=== PATIENT | female | born 1930 | race Hispanic/Latino ===

== ENCOUNTER 2017-09-12 08:07 | Inpatient (IN) | payer MEDICARE ==
[2017-09-12] MEDS ORDERED: ONDANSETRON 4 MG/2 ML VIAL ONE (08:17)
[2017-09-12] MEDS ORDERED: FENTANYL CITR 100 MCG/2 ML ONE (08:18)
[2017-09-12 08:28] LABS: Absolute Lymphocytes (CBC) 2.3 K/uL (0.7-4.9); Absolute Monocytes 0.5 K/uL (0.1-1.3); Absolute Neutrophil 4.8 K/uL (1.8-8.0); Basophils % 0.3 % (0-1.3); Eosinophils % 2.9 % (0-4.4); Hematocrit 34.9 % (36.0-45.0); Lymphocytes % 29.3 % (15.3-44.8); MCH 34.3 pg (27.0-35.0); MCV 99.8 fL (80-100); MPV 9.2 fL (7.6-11.3); Monocytes % 6.7 % (3.3-12.3); RBC Red Blood Cell Count 3.49 M/uL (3.86-4.86)
--- NOTE | 2017-09-12 09:29 | RAD REPORT ---
EXAM DESCRIPTION: RAD - Hip Left 2 View - 09/12/2017 9:16 am CLINICAL HISTORY: Left hip pain status post injury FINDINGS: The bones are osteoporotic. A moderately displaced fracture involves the left superior pubic ramus. A mildly displaced fracture involves the left inferior pubic ramus. No dislocation is seen
--- NOTE | 2017-09-12 09:30 | RAD REPORT ---
EXAM DESCRIPTION: RAD - Pelvis - 09/12/2017 9:16 am CLINICAL HISTORY: Pelvic pain status post injury FINDINGS: The bones are osteoporotic. A moderately displaced fracture involves the left superior pubic ramus. A mildly displaced fracture involves the left inferior pubic ramus. No dislocation is seen
--- NOTE | 2017-09-12 09:33 | RAD REPORT ---
EXAM DESCRIPTION: RAD - Knee Left 3 View - 09/12/2017 9:16 am CLINICAL HISTORY: Left knee pain status post injury FINDINGS: No fracture or dislocation is seen. Chondrocalcinosis is present. The bones are osteoporotic
--- NOTE | 2017-09-12 09:35 | RAD REPORT ---
EXAM DESCRIPTION: RAD - Shoulder Left 2 View - 09/12/2017 9:16 am CLINICAL HISTORY: Left shoulder pain status post fall FINDINGS: The bones are osteoporotic. An oblique lucency is present within the acromion process which may represent a nondisplaced fracture or prominent trabecula. No dislocation is seen
--- NOTE | 2017-09-12 12:04 | ER ---
Nurse's Notes [facility] Name: Michele Ivey Age: 87 yrs Sex: Female : 1930 Arrival Date: 09/12/2017 Time: 08:09 Bed 2 Private MD: Diagnosis: Displaced Left Pubic Ramus Fracture ;Left acromial fracture Presentation: 09/12 08:09 Presenting complaint: EMS states: pt slipped out of bed, c/o LEFT hip and shoulder tw2 pain, denies LOC or head injury, vs stable. Transition of care: patient was not received from another setting of care. Onset of symptoms was September 12, 2017. Risk Assessment: Do you want to hurt yourself or someone else? Patient reports no desire to harm self or others. Initial Sepsis Screen: Does the patient meet any 2 criteria? No. Patient's initial sepsis screen is negative. Does the patient have a suspected source of infection? No. Patient's initial sepsis screen is negative. Care prior to arrival: None. 08:09 Method Of Arrival: EMS: [facility] tw2 08:27 Acuity: PARISA 3 tw2 Historical: - Allergies: 08:18 No Known Allergies; tw2 - Home Meds: 08:18 oxcarbazepine 300 mg oral tab 1 tab 2 times per day [Active]; levothyroxine 75 mcg tab tw2 1 tab once daily [Active]; losartan 75 mg oral tab 1 tab once daily [Active]; tizanidine 4 mg oral cap 1 cap 3 times per day [Active]; ibandronate 150 mg oral tab 1 tab once moly [Active]; Pravachol 20 mg Oral tab 1 tab once daily [Active]; Belén Aspirin 325 mg oral tab 1 tab once daily [Active]; magnesium oxide 250 mg Oral tab [Active]; Caltrate 600+D Plus Minerals 600 mg calcium- 800 unit-50 mg oral tab [Active]; Women's One Daily 18 mg iron-400 mcg-500 mg Ca oral tab [Active]; Fish Oil 183.3 mg-75 mg -91.6 mg-306 mg oral cap [Active]; fluzone Hi-Dose - 02/02/2017 [Active]; - PMHx: 08:18 Seizures; Hypertension; Hypothyroidism; tw2 - Immunization history:: Adult Immunizations up to date. - Social history:: Smoking status: Patient/guardian denies using tobacco. - Ebola Screening: : Patient denies travel to an Ebola-affected area in the 21 days before illness onset. Screenin:27 Abuse screen: Denies threats or abuse. Nutritional screening: No deficits noted. tw2 Tuberculosis screening: No symptoms or risk factors identified. Fall Risk None identified. Assessment: 08:25 General: Appears uncomfortable, slender, Behavior is calm, cooperative. Pain: Complains rv of pain in left inguinal area, left iliac crest and left hip Pain. Cardiovascular: Rhythm is PVCs. Respiratory: No deficits noted. Respiratory: No deficits noted. GI: No signs and/or symptoms were reported involving the gastrointestinal system. : No signs and/or symptoms were reported regarding the genitourinary system. EENT: No signs and/or symptoms were reported regarding the EENT system. Derm: No signs and/or symptoms reported regarding the dermatologic system. Musculoskeletal:. 09:39 Reassessment: Patient appears in no apparent distress at this time. Patient and/or tw2 family updated on plan of care and expected duration. Pain level reassessed. Patient is alert, oriented x 3, equal unlabored respirations, skin warm/dry/pink. 10:20 Reassessment: Patient appears in no apparent distress at this time. Patient and/or tw2 family updated on plan of care and expected duration. Pain level reassessed. Patient is alert, oriented x 3, equal unlabored respirations, skin warm/dry/pink. 11:50 Reassessment: Patient appears in no apparent distress at this time. Patient and/or tw2 family updated on plan of care and expected duration. Pain level reassessed. Patient is alert, oriented x 3, equal unlabored respirations, skin warm/dry/pink. Vital Signs: 08:10 BP 137 / 70; Pulse 76; Resp 17; Pulse Ox 95% on R/A; Weight 52.16 kg (R); Pain 10/10; tw2 08:14 Temp 98(O); ae1 08:19 Temp 98(O); tw2 09:38 BP 116 / 63; Pulse 74; Resp 16; Pulse Ox 97% on R/A; tw2 10:19 BP 122 / 74; Pulse 77; Resp 16; Pulse Ox 96% on R/A; tw2 11:32 BP 127 / 72; Pulse 79; Resp 18; Pulse Ox 96% on R/A; ag 11:51 BP 144 / 88; Pulse 78; Resp 16; Pulse Ox 96% on R/A; tw2 08:10 pain 10/10 with movement tw2 ED Course: 08:09 Patient arrived in ED. tw2 08:09 Claudio Rasmussen MD is Attending Physician. kdr 08:10 [facility] Berrios [facility] jr8 08:10 Triage completed. tw2 08:10 Arm band placed on. tw2 08:10 Placed in gown. Bed in low position. Adult w/ patient. electrical technician instructor on. Pulse ox on. tw2 NIBP on. Warm blanket given. 08:13 Giovanny Newby RN is Primary Nurse. ae1 08:30 Inserted saline lock: 20 gauge in right antecubital area, using aseptic technique. rv 09:17 XRAY Hip LEFT 2 view In Process Unspecified. EDMS 09:17 XRAY Pelvis In Process Unspecified. EDMS 09:17 XRAY Knee LEFT 3 view In Process Unspecified. EDMS 09:17 XRAY Shoulder LEFT 2 view In Process Unspecified. EDMS 09:30 EKG done, by geotechnical engineer. 3 09:41 Dimitri Grant MD is Hospitalizing Provider. jr8 10:20 No provider procedures requiring assistance completed. tw2 11:51 Patient admitted, IV remains in place. tw2 Administered Medications: 08:15 Drug: Zofran 4 mg Route: IVP; Site: right antecubital; ae1 09:46 Follow up: Response: No adverse reaction; Nausea is decreased rv 08:22 Drug: fentaNYL (PF) 25 mcg Route: IVP; Site: right antecubital; ae1 09:47 Follow up: Response: No adverse reaction; Pain is decreased rv Outcome: 09:42 Decision to Hospitalize by Provider. jr8 11:51 Admitted to Med/surg accompanied by tech, via stretcher, room 211, with chart, Report tw2 called to MEAGHAN Brown 11:51 Condition: stable 11:51 Instructed on the need for admit. 12:03 Patient left the ED. tw2 Signatures: Dispatcher [employer] EDMS Claudio Rasmussen MD MD kdr Xander Berrios PA PA jr8 Yvonne Nixon Tara, RN RN tw2 Giovanny Newby RN RN ae1 Anisha Fortune 3 Maximiliano Stewart RN RN rv Corrections: (The following items were deleted from the chart) 08: 08:09 Acuity: PARISA 4 tw2 tw2
--- NOTE | 2017-09-12 12:04 | EDPHYS ---
Physician Documentation [facility] Name: Michele Ivey Age: 87 yrs Sex: Female : 1930 Arrival Date: 09/12/2017 Time: 08:09 Bed 2 Private MD: ED Physician Claudio Rasmussen HPI: 09/12 08:52 This 87 yrs old Female presents to ER via EMS with complaints of Fall Injury. jr8 08:52 Details of fall: The patient fell from seated position, off the edge of a bed. Onset: jr8 The symptoms/episode began/occurred acutely, this morning. Associated injuries: The patient sustained left arm and left leg. Severity of symptoms: At their worst the symptoms were moderate, in the emergency department the symptoms are unchanged. The patient has not experienced similar symptoms in the past. The patient has not recently seen a physician. Patient stated that she slid out of bed accidently landing on left hip and arm. Pain with motion and movement since fall . Historical: - Allergies: 08:18 No Known Allergies; tw2 - Home Meds: 08:18 oxcarbazepine 300 mg oral tab 1 tab 2 times per day [Active]; levothyroxine 75 mcg tab tw2 1 tab once daily [Active]; losartan 75 mg oral tab 1 tab once daily [Active]; tizanidine 4 mg oral cap 1 cap 3 times per day [Active]; ibandronate 150 mg oral tab 1 tab once moly [Active]; Pravachol 20 mg Oral tab 1 tab once daily [Active]; Belén Aspirin 325 mg oral tab 1 tab once daily [Active]; magnesium oxide 250 mg Oral tab [Active]; Caltrate 600+D Plus Minerals 600 mg calcium- 800 unit-50 mg oral tab [Active]; Women's One Daily 18 mg iron-400 mcg-500 mg Ca oral tab [Active]; Fish Oil 183.3 mg-75 mg -91.6 mg-306 mg oral cap [Active]; fluzone Hi-Dose - 02/02/2017 [Active]; - PMHx: 08:18 Seizures; Hypertension; Hypothyroidism; tw2 - Immunization history:: Adult Immunizations up to date. - Social history:: Smoking status: Patient/guardian denies using tobacco. - Ebola Screening: : Patient denies travel to an Ebola-affected area in the 21 days before illness onset. ROS: 08:52 Eyes: Negative for injury, pain, redness, and discharge, ENT: Negative for injury, jr8 pain, and discharge, Neck: Negative for injury, pain, and swelling, Cardiovascular: Negative for chest pain, palpitations, and edema, Respiratory: Negative for shortness of breath, cough, wheezing, and pleuritic chest pain, Abdomen/GI: Negative for abdominal pain, nausea, vomiting, diarrhea, and constipation, Back: Negative for injury and pain, Skin: Negative for injury, rash, and discoloration, Neuro: Negative for headache, weakness, numbness, tingling, and seizure. 08:52 MS/extremity: Positive for decreased range of motion, pain, tenderness, of the left arm and left leg. Exam: 08:52 Head/Face: Normocephalic, atraumatic. Eyes: Pupils equal round and reactive to light, jr8 extra-ocular motions intact. Lids and lashes normal. Conjunctiva and sclera are non-icteric and not injected. Cornea within normal limits. Periorbital areas with no swelling, redness, or edema. ENT: Nares patent. No nasal discharge, no septal abnormalities noted. Tympanic membranes are normal and external auditory canals are clear. Oropharynx with no redness, swelling, or masses, exudates, or evidence of obstruction, uvula midline. Mucous membranes moist. Neck: Trachea midline, no thyromegaly or masses palpated, and no cervical lymphadenopathy. Supple, full range of motion without nuchal rigidity, or vertebral point tenderness. No Meningismus. Chest/axilla: Normal chest wall appearance and motion. Nontender with no deformity. No lesions are appreciated. Cardiovascular: Regular rate and rhythm with a normal S1 and S2. No gallops, murmurs, or rubs. Normal PMI, no JVD. No pulse deficits. Respiratory: Lungs have equal breath sounds bilaterally, clear to auscultation and percussion. No rales, rhonchi or wheezes noted. No increased work of breathing, no retractions or nasal flaring. Abdomen/GI: Soft, non-tender, with normal bowel sounds. No distension or tympany. No guarding or rebound. No evidence of tenderness throughout. Back: No spinal tenderness. No costovertebral tenderness. Full range of motion. Skin: Warm, dry with normal turgor. Normal color with no rashes, no lesions, and no evidence of cellulitis. Neuro: Awake and alert, GCS 15, oriented to person, place, time, and situation. Cranial nerves II-XII grossly intact. Motor strength 5/5 in all extremities. Sensory grossly intact. Cerebellar exam normal. Normal gait. 08:52 Musculoskeletal/extremity: Extremities: grossly normal except: noted in the left shoulder: decreased ROM, pain, tenderness, noted in the left hip: decreased ROM, pain, tenderness, ROM: full passive range of motion, limited active range of motion, limited passive range of motion, limited active range of motion due to pain, limited passive range of motion due to pain, Circulation is intact in all extremities. Sensation intact. Vital Signs: 08:10 BP 137 / 70; Pulse 76; Resp 17; Pulse Ox 95% on R/A; Weight 52.16 kg (R); Pain 10/10; tw2 08:14 Temp 98(O); ae1 08:19 Temp 98(O); tw2 09:38 BP 116 / 63; Pulse 74; Resp 16; Pulse Ox 97% on R/A; tw2 10:19 BP 122 / 74; Pulse 77; Resp 16; Pulse Ox 96% on R/A; tw2 11:32 BP 127 / 72; Pulse 79; Resp 18; Pulse Ox 96% on R/A; ag 11:51 BP 144 / 88; Pulse 78; Resp 16; Pulse Ox 96% on R/A; tw2 08:10 pain 10/10 with movement tw2 MDM: 08:10 Patient medically screened. jr8 09:35 ED course: Called Dr. Bardales and left message to see if he could consult on case . jr8 09:40 Data reviewed: vital signs, nurses notes, lab test result(s), EKG, radiologic studies, jr8 plain films, and as a result, I will admit patient. Data interpreted: Pulse oximetry: on room air is 97 %. Interpretation: normal. Counseling: I had a detailed discussion with the patient and/or guardian regarding: the historical points, exam findings, and any diagnostic results supporting the discharge/admit diagnosis, lab results, radiology results, the need for further work-up and treatment in the hospital. Physician consultation: Dimitri Grant MD was called at 09:40, was contacted at 09:40, regarding admission, to the medical/surgical unit. consult, patient's condition, and will see patient. 10:10 ED course: Dr. Bardales called back and will consult on case . 09/12 08:11 Order name: CBC with Diff; Complete Time: 08:35 09/12 08:11 Order name: Basic Metabolic Panel; Complete Time: 08:41 09/12 08:11 Order name: XRAY Hip LEFT 2 view; Complete Time: 09:33 09/12 08:11 Order name: XRAY Pelvis; Complete Time: 09:33 09/12 08:11 Order name: XRAY Knee LEFT 3 view; Complete Time: 09:34 09/12 08:11 Order name: XRAY Shoulder LEFT 2 view; Complete Time: 09:38 09/12 08:11 Order name: IV; Complete Time: 08:26 09/12 09:38 Order name: Sling; Complete Time: 09:41 09/12 11:02 Order name: CONS Physician Consult EDMS Administered Medications: 08:15 Drug: Zofran 4 mg Route: IVP; Site: right antecubital; ae1 09:46 Follow up: Response: No adverse reaction; Nausea is decreased rv 08:22 Drug: fentaNYL (PF) 25 mcg Route: IVP; Site: right antecubital; ae1 09:47 Follow up: Response: No adverse reaction; Pain is decreased rv Disposition: 13:08 Co-signature as Attending Physician, Claudio Rasmussen MD I agree with the assessment and kdr plan of care. Disposition: 09/12/17 09:42 Hospitalization ordered by Dimitri Grant for Inpatient Admission. Preliminary diagnosis are Displaced Left Pubic Ramus Fracture , Left acromial fracture . - Bed requested for Telemetry/MedSurg (Inpatient). - Status is Inpatient Admission. tw2 - Condition is Stable. - Problem is new. - Symptoms have improved. UTI on Admission? No Signatures: Dispatcher [employer] EDMS Ana Méndez RN RN dw Claudio Rasmussen MD MD kdr Roszak, Josh, PA PA jr8 Tavia Bellamy RN RN tw2 Giovanny Newby RN RN ae1 Maximiliano Stewart RN rv Corrections: (The following items were deleted from the chart) 11:25 09:42 Hospitalization Ordered by A Rudy BURRELL for Inpatient Admission. Preliminary dw diagnosis is Displaced Left Pubic Ramus Fracture ; Left acromial fracture . Bed requested for Telemetry/MedSurg (Inpatient). Status is Inpatient Admission. Condition is Stable. Problem is new. Symptoms have improved. UTI on Admission? No. jr8 12:03 11:25 09/12/2017 09:42 Hospitalization Ordered by A Rudy BURRELL for Inpatient Admission. tw2 Preliminary diagnosis is Displaced Left Pubic Ramus Fracture ; Left acromial fracture . Bed requested for Telemetry/MedSurg (Inpatient). Status is Inpatient Admission. Condition is Stable. Problem is new. Symptoms have improved. UTI on Admission? No. dw
[2017-09-12] MEDS ORDERED: MORPHINE 2 MG/ML SYR IV PRN (12:29)
[2017-09-12] MEDS ORDERED: ONDANSETRON 4 MG/2 ML VIAL IV PRN (12:29)
[2017-09-12] MEDS: Morphine 2 MG/2 ML SYR IV PRN ×3 (12:40→22:27)
[2017-09-12] MEDS ORDERED: ENOXAPARIN 30 MG/0.3 ML SQ ONE (19:08)
[2017-09-12] MEDS: TRAMADOL HCL 50 MG TAB PO SCH (21:02)
[2017-09-12] MEDS: ATORVASTATIN 10 MG TAB PO SCH (21:02)
[2017-09-12] MEDS: TIZANIDINE 4 MG TABLET PO SCH (21:03)
[2017-09-12] MEDS: OXcarbazepine 150 MG TAB PO SCH (21:09)
[2017-09-12] MEDS: NA CHLORIDE 0.9% 1,000 ML IV SCH (23:57)
[2017-09-13 00:12] LABS: Urine Appearance CLEAR; Urine Bilirubin NEGATIVE (NEG); Urine Blood 2+ (NEG); Urine Color YELLOW; Urine Glucose NEGATIVE (NEG); Urine Protein TRACE (NEG); Urine Specific Gravity 1.025 (1.005-1.030); Urine Urobilinogen 0.2 mg/dL (0.2-1.0)
[2017-09-13 00:25] LABS: Urine Culture Reflex Order NOT NEEDED
[2017-09-13 00:26] LABS: Urine Bacteria <20 /HPF (<20); Urine Mucus 2+ /HPF (NONE SEEN)
[2017-09-13] MEDS: ACETAMINOPHEN 500 MG TAB PO PRN (00:42)
[2017-09-13] MEDS: Morphine 2 MG/2 ML SYR IV PRN (04:41)
[2017-09-13 05:04] LABS: Absolute Lymphocytes (CBC) 1.8 K/uL (0.7-4.9); Absolute Monocytes 0.7 K/uL (0.1-1.3); Absolute Neutrophil 5.6 K/uL (1.8-8.0); Basophils % 0.5 % (0-1.3); Eosinophils % 3.7 % (0-4.4); Lymphocytes % 21.6 % (15.3-44.8); MCH 33.9 pg (27.0-35.0); MCV 100.7 fL (80-100); MPV 9.7 fL (7.6-11.3); Monocytes % 8.3 % (3.3-12.3); RBC Red Blood Cell Count 3.08 M/uL (3.86-4.86)
[2017-09-13 05:57] LABS: Albumin 3.7 g/dL (3.2-5.5); Bilirubin Total 0.6 mg/dL (0.3-1.2); Magnesium 2.3 mg/dL (1.8-2.5); Protein, Total 6.7 g/dL (6.0-8.3); Thyroid Stimulating Hormone 4.63 uIU/mL (0.34-5.60)
--- NOTE | 2017-09-13 06:26 | HP ---
Date of Admission: 09/12/2017 Chief Complaint: Fall and pain. History Of Present Illness: This is an 87-year-old very pleasant female patient, who lives at home w ith her sister and her sister's family, who really have done a great job in terms of taking care of h er by keeping her in their house as well as looking after on her day-to-day needs. The patient uses a walker to ambulate inside and outside the house and she was in the bathroom with her walker and she took walker all the way to the bathroom and then went inside the bathroom holding onto sink area and cabinet and what we believe as best as I can understand by talking to family that she was probably g etting up from the commode, lost her balance, and fell down next to the commode. After that, her nep hew heard the noise and he went there to check on her and found her on the floor. He tried to get he r up. She was not able to get up and the patient was brought into emergency room, where further eval uation revealed presence of fracture of the acromion process of left shoulder and left pelvis includi ng superior and inferior pubic ramus. The patient was admitted to the hospital under my service and Orthopedic consultation has been obtained from Dr. Bardales. Dr. Bardalse has recommended conservative treat ment, no need for surgical intervention. Allergies: NO KNOWN ALLERGIES. Medications: She takes Aleve 220 mg 1 tablet 2 times a day as needed for pain, aspirin 81 mg daily, Caltrate plus D 1 tablet 2 times a day, Boniva 150 mg once a month, levothyroxine 75 mcg p.o. daily, losartan 50 mg p.o. daily, magnesium 250 mg p.o. 2 times a day, oxcarbazepine 300 mg 1 tablet 2 times a day, pravastatin 20 mg daily in the evening, and tizanidine 4 mg at bedtime as needed. Review of Systems: Musculoskeletal: As mentioned above. All other systems reviewed and negative. Past Medical History: Significant for osteoporosis, hypertension, mixed hyperlipidemia, seizure diso rder, hypothyroidism, and osteoarthritis at multiple sites. Past Surgical History: Pacemaker placement in 2006. Social History: Negative for smoking, alcohol use. Family History: Significant for myocardial infarction, stroke, and lung cancer. Physical Examination: Vital Signs: Last vital signs before I saw her this evening, temperature 99.3, pulse 89, respiratory rate 20, blood pressure 128/61, height 5 feet and 2 inches, and weight 103 pounds. General: Awake, alert, and oriented, not in distress. HEENT: Head atraumatic, normocephalic. Conjunctivae nonerythematous. Sclerae white. Mouth, no thr ush or edema noted. Ears/Nose, no mass, lesion, discharge noted. Neck: Supple. No JVD, lymph nodes, bruit, or thyromegaly noted. Lungs: Bilateral good equal air entry. Clear to auscultation. No rhonchi. No rales. Heart: Normal heart sounds, no murmur or gallop. Abdomen: Soft, bowel sounds normal. No guarding, rigidity, tenderness, mass, hepatosplenomegaly, di stention, or bruit noted. Extremities: No leg edema. No calf tenderness. Skin: No rash, ulcer, or cellulitis. Lymphatics: No lymph node enlargement in neck, supraclavicular, or infraclavicular region. Neuro: No focal neurological deficit. Chest: Unremarkable. External Genitalia: Deferred. Rectal: Deferred. Laboratory Data: Sodium 141, potassium 4, chloride 105, bicarb 29, BUN 25, creatinine 0.74, and gluc ose 118. White count 7.8, hemoglobin 12, and platelets 141. Imaging: Left hip x-ray shows moderately displaced fracture involving left superior pubic ramus, mil dly displaced fracture involving left inferior pubic ramus. Knee x-ray, chondrocalcinosis. Bones ar e osteoporotic. No fracture or dislocation. Left shoulder x-ray, oblique lucency present within acr omion process, which may represent no displaced fracture or prominent trabecula, no dislocation. Impression: 1.Left superior and inferior pubic ramus fracture with [id number] displacement. 2.Left shoulder fracture involving acromion process. 3.Osteoporosis. 4.Osteoarthritis, multiple sites. 5.Mixed hyperlipidemia. 6.Seizure disorder. 7.Hypothyroidism. 8.Hypertension. 9.Status post pacemaker placement. Plan: Admit the patient to hospital for further evaluation and management of this problem. The [facility] ent is appropriate for inpatient and is expected to spend 2 midnights in hospital. We will go ahead and follow up with orthopedic surgeon, Dr. Bardales, who has evaluated the patient. Conservative treatme nt is recommended. We will go ahead and consult Physical Therapy. We will also consult Rehab. Fall precaution was ordered. DVT prophylaxis will be provided using Lovenox. We will repeat blood work tomorrow. The patient has significant amount of pain with any movement including trying to move just to use the bed samuel caused very intense pain as reported by family. So, what we will do is go ahead and put a Guzman catheter for at least 48 hours to try to provide her some relief. We will also obtai n urinalysis, urine culture once the Guzman catheter is in place and morphine and Zofran will be maria esther nued on a p.r.n. basis, but we will also add tramadol 3 times a day, as scheduled pain medication. C ontinue tizanidine at bedtime. Stool softener will be given. Details and plan of treatment discusse d with the patient and her family member. RUDI/ABDIRIZAK Voice ID: [id number]
--- NOTE | 2017-09-13 06:59 | EKG ---
Test Date: 2017-09-12 Test Time: 09:30:03 Paving And Surfacing Labourer: ANA MEASUREMENT RESULTS: Intervals: Rate: 75 OH: 192 QRSD: 78 QT: 366 QTc: 408 [place]: P: -24 OH: 192 QRS: 10 T: 13 INTERPRETIVE STATEMENTS: Atrial-paced rhythm with occasional premature ventricular complexes Cannot rule out Anterior infarct, age undetermined Abnormal ECG No previous ECG available for comparison Electronically Signed On 09-13-17 06:55:50 CDT by Gustavo Roper
[2017-09-13] MEDS: MAGNESIUM OXIDE 400 MG TAB PO SCH (09:38)
[2017-09-13] MEDS: DOCOSAHEXANOIC AC/EPA 1000 MG PO SCH (09:38)
[2017-09-13] MEDS: CALCIUM CARB 500MG/VIT D 200 IU TAB PO SCH (09:38)
[2017-09-13] MEDS: DOCUSATE NA 100 MG CAP PO SCH ×2 (09:38→20:16)
[2017-09-13] MEDS: LOSARTAN POTASSIUM 50 MG TABLET PO SCH (09:39)
[2017-09-13] MEDS: MULTIVITAMIN TAB PO SCH (09:39)
[2017-09-13] MEDS: LEVOTHYROXINE SOD 0.075 MG TAB PO SCH (09:39)
[2017-09-13] MEDS: TRAMADOL HCL 50 MG TAB PO SCH ×3 (09:39→20:18)
[2017-09-13] MEDS: ASPIRIN 81 MG CHEWABLE TABLET PO SCH (09:39)
[2017-09-13] MEDS: OXcarbazepine 150 MG TAB PO SCH ×2 (09:40→20:15)
--- NOTE | 2017-09-13 10:32 | P.PN ---
Subjective Date of Service: 09/13/17 Chief Complaint: L acromion fracture and left pubic rami fractures Subjective: No new changes pain controlled Physical Examination - Vital Signs Temperature: 98.2 F Blood Pressure: 129/60 Pulse: 77 Respirations: 18 Pulse Ox (%): 91 - Physical Exam General: Alert, In no apparent distress Musculoskeletal: Other (LUE: no pain with ROM of left shoulder or elbow; NVI distally; LLE: mild pain with ER/IR/flexion of the left hip; NVI distally) Assessment And Plan - Plan Michele is an 87 yo female s/p fall with left acromion fracture and left pubic rami fractures -will proceed with nonoperative treatment -PT to mobilize; WBAT LLE; WBAT LUE; sling for comfort for LUE and may remove as needed -pain control -patient may followup in my clinic in 2 weeks for reevaluation and repeat xrays
--- NOTE | 2017-09-13 12:14 | CON ---
Date of Consultation: 09/12/2017 Reason For Consultation: Left hip and left shoulder pain. History Of Present Illness: Ms. Ivey is an 87-year-old female who presented to the ER yesterday after sustaining a fall from a commode. She fell onto her left side and subsequently injured her le ft groin and left shoulder. The patient had x-rays in the emergency room, which demonstrated a minim ally displaced left acromion fracture as well as a left sided inferior superior pubic rami fractures. Prior to the fall, the patient was ambulating with use of a walker. The patient was not able to am bulate after the fall. She denies any other musculoskeletal complaints at this time. Review of Systems: As above, otherwise negative. Physical Examination: General: No apparent distress. HEENT: Normocephalic, atraumatic. Neck: Supple. Cardiovascular: Brisk cap refill to all digits. Chest: Nonlabored breathing. Abdomen: Nondistended. Psychiatric: Responds to exam. Musculoskeletal: Left upper extremity: Tenderness to palpation over the superior aspect of the acro mion. No tenderness to palpation over the humeral head or shaft. No pain with internal and external rotation of the left shoulder. Neurovascular: Intact distally. Right upper extremity: Functional range of motion without pain. No gross deformities. No obvious d islocations. Right lower extremity: Functional range of motion without pain. No gross deformities. No obvious dislocations. No pain with range of motion of the right hip. Left lower extremity: Pa in with pressure on the ASIS. No pain with internal and external rotation of the left hip with the l eg extended. No tenderness to palpation over the distal femur, tibia or foot. Positive firing of EH L and FHL and neurovascularly intact distally. X-rays: X-rays of the left shoulder demonstrate a minimally displaced acromion fracture near the AC joint. X-rays of the pelvis did demonstrate a moderately displaced fracture of the left superior and inferior rami. No obvious fracture of the left proximal femur. Assessment And Plan: Ms. Ivey is an 87-year-old female with left-sided pubic rami fracture as w ell as a left acromion fracture. I discussed with the patient and her family at length her diagnoses as well as treatment recommendation. I recommend nonoperative closed treatment. She will be admitt ed to the floor under the care of Dr. Grant who now recommend physical therapy and immobilization. Th e patient may be weightbearing as tolerated on the bilateral lower extremity as well as the upper ext remity. She may use a sling for comfort on her left upper extremity and may remove it while ambulati ng with the use of a walker. ALEKS/ABDIRIZAK Voice ID: [id number] Report ID: [id number]
[2017-09-13] MEDS: NA CHLORIDE 0.9% 1,000 ML IV SCH (12:43)
--- NOTE | 2017-09-13 13:35 | PN ---
Date of Progress Note: 09/13/2017 Subjective: The patient was seen this morning for followup. No new complaints, problems reported by the patient except she has pain anytime she moves, otherwise denies any other specific complaints. No nausea, vomiting. No shortness of breath. Her nephew was present with her in the room. Objective: Vital Signs: Reviewed. HEENT: Examination unremarkable. Lungs: Clear to auscultation. Heart: Sounds normal. Abdomen: Soft, bowel sounds normal. No guarding, rigidity, tenderness, or distention. Extremities: No leg edema. Laboratory Data: White count 8.5, hemoglobin 10.5, platelets 113. Sodium 139, potassium 4, chloride 105, bicarb 29, BUN 29, creatinine 0.78, glucose 116. Liver function tests unremarkable. TSH 4.63. Impression: 1.Left superior and inferior pubic ramus fracture with displacement. 2.Left acromion infracture. 3.Thrombocytopenia. 4.Hypertension. 5.Seizure disorder. 6.Osteoporosis. 7.Osteoarthritis. 8.Anemia. Plan: We will go ahead and continue current pain medications which is p.r.n. morphine and schedule t ramadol. Continue tizanidine. Physical therapy to work with the patient. I did talk to Dr. Jeffy norris plan of treatment discussed with him. We will consult rehab. Continue Lovenox for DVT prophylaxis . We will monitor hemoglobin and platelet count along with electrolytes. Home medications will be c ontinued per order. Details and plan of treatment discussed with the patient and her family. Urinalysis was unremarkable. No evidence of urinary tract infection. The patient has a Guzman cathet er, which was placed yesterday evening and we will keep that in place at least for another day or 2 d ays and then we will decide at that point if she can take it out or not RUDI/MODL Voice ID: [id number] Report ID: [id number]
[2017-09-13] MEDS ORDERED: ENOXAPARIN 30 MG/0.3 ML SQ SCH (17:00)
[2017-09-13] MEDS: ATORVASTATIN 10 MG TAB PO SCH (20:17)
[2017-09-13] MEDS: TIZANIDINE 4 MG TABLET PO SCH (20:21)
[2017-09-14] MEDS: ACETAMINOPHEN 500 MG TAB PO PRN ×2 (00:07→12:42)
[2017-09-14] MEDS: NA CHLORIDE 0.9% 1,000 ML IV SCH (00:08)
[2017-09-14] MEDS: MULTIVITAMIN TAB PO SCH (08:39)
[2017-09-14] MEDS: TRAMADOL HCL 50 MG TAB PO SCH ×3 (08:39→20:13)
[2017-09-14] MEDS: DOCOSAHEXANOIC AC/EPA 1000 MG PO SCH (08:39)
[2017-09-14] MEDS: OXcarbazepine 150 MG TAB PO SCH ×2 (08:40→20:13)
[2017-09-14] MEDS: CALCIUM CARB 500MG/VIT D 200 IU TAB PO SCH (08:40)
[2017-09-14] MEDS: MAGNESIUM OXIDE 400 MG TAB PO SCH (08:40)
[2017-09-14] MEDS: ASPIRIN 81 MG CHEWABLE TABLET PO SCH (08:40)
[2017-09-14] MEDS: DOCUSATE NA 100 MG CAP PO SCH ×2 (08:41→20:13)
[2017-09-14] MEDS: LOSARTAN POTASSIUM 50 MG TABLET PO SCH (08:41)
[2017-09-14] MEDS: LEVOTHYROXINE SOD 0.075 MG TAB PO SCH (08:48)
[2017-09-14 10:04] LABS: BUN Blood Urea Nitrogen 17 mg/dL (6-20); Bicarbonate 28 mEq/L (21-31); Glucose Level 142 mg/dL (65-120); Magnesium 2.1 mg/dL (1.8-2.5); Potassium 3.3 mEq/L (3.6-5.0); Sodium Level 135 mEq/L (135-145)
[2017-09-14 10:12] LABS: Absolute Monocytes 0.6 K/uL (0.1-1.3); Absolute Neutrophil 5.4 K/uL (1.8-8.0); Basophils % 0.3 % (0-1.3); Eosinophils % 4.5 % (0-4.4); Hematocrit 26.4 % (36.0-45.0); Lymphocytes % 13.6 % (15.3-44.8); MCH 33.3 pg (27.0-35.0); MCV 99.8 fL (80-100); MPV 9.7 fL (7.6-11.3); Monocytes % 7.6 % (3.3-12.3); RBC Red Blood Cell Count 2.65 M/uL (3.86-4.86)
[2017-09-14] MEDS ORDERED: POTASSIUM 25 MEQ EFFERV TAB PO ONE (10:28)
--- NOTE | 2017-09-14 15:18 | PN ---
Date of Progress Note: 09/14/2017 Subjective: The patient was seen today for followup. No new complaints or problems reported. No nausea, vomiting. No abdominal pain. Objective: Vital Signs: Reviewed. HEENT: Unremarkable. Lungs: clear to auscultation. Heart: Heart sounds normal. Abdomen: soft, bowel sounds normal. No guarding, rigidity, tenderness, or distention. Extremities: No leg edema. Laboratory Data: White count 7.3, hemoglobin 8.8, and platelets 95. Sodium 135 , potassium 3.3, chloride 105, bicarb 28, BUN 17, creatinine 0.57, and glucose 142. Impression: 1. Left superior and inferior pubic ramus fracture. 2. Hypokalemia. 3. Thrombocytopenia. 4. Anemia. Plan: The patient's thrombocytopenia is something new that we are noticing it while in the hospital. She is getting Lovenox for DVT prophylaxis. We will discontinue that considering drop in the platelet count until we see platelet count stabilizing. Order HIT profile and we will order SCD for DVT prophylaxis. Physical therapy to be continued. Continue current pain medication and I will see her tomorrow for followup. RUDI/MODL Voice ID: [id number] Report ID: [id number] GREGORIO
[2017-09-14] MEDS: TIZANIDINE 4 MG TABLET PO SCH (20:13)
[2017-09-14] MEDS: ATORVASTATIN 10 MG TAB PO SCH (20:14)
[2017-09-15] MEDS: ACETAMINOPHEN 500 MG TAB PO PRN (05:28)
[2017-09-15 06:33] LABS: Absolute Lymphocytes (CBC) 1.3 K/uL (0.7-4.9); Absolute Monocytes 0.7 K/uL (0.1-1.3); Basophils % 0.4 % (0-1.3); Eosinophils % 4.5 % (0-4.4); Hematocrit 27.9 % (36.0-45.0); Lymphocytes % 15.8 % (15.3-44.8); MCH 34.6 pg (27.0-35.0); MCV 99.9 fL (80-100); Monocytes % 8.8 % (3.3-12.3); RBC Red Blood Cell Count 2.79 M/uL (3.86-4.86)
[2017-09-15 06:48] LABS: BUN Blood Urea Nitrogen 11 mg/dL (6-20); Bicarbonate 25 mEq/L (21-31); Glucose Level 116 mg/dL (65-120); Potassium 4.3 mEq/L (3.6-5.0); Sodium Level 135 mEq/L (135-145)
[2017-09-15] MEDS: MULTIVITAMIN TAB PO SCH (09:29)
[2017-09-15] MEDS: OXcarbazepine 150 MG TAB PO SCH ×2 (09:29→20:13)
[2017-09-15] MEDS: APIXABAN 2.5 MG TABLET PO SCH ×2 (09:29→20:14)
[2017-09-15] MEDS: DOCOSAHEXANOIC AC/EPA 1000 MG PO SCH (09:30)
[2017-09-15] MEDS: LEVOTHYROXINE SOD 0.075 MG TAB PO SCH (09:30)
[2017-09-15] MEDS: DOCUSATE NA 100 MG CAP PO SCH ×2 (09:30→20:14)
[2017-09-15] MEDS: MAGNESIUM OXIDE 400 MG TAB PO SCH (09:30)
[2017-09-15] MEDS: TRAMADOL HCL 50 MG TAB PO SCH ×3 (09:31→20:13)
[2017-09-15] MEDS: CALCIUM CARB 500MG/VIT D 200 IU TAB PO SCH (09:32)
[2017-09-15] MEDS: LOSARTAN POTASSIUM 50 MG TABLET PO SCH (09:32)
--- NOTE | 2017-09-15 11:10 | PN ---
Date of Progress Note: 09/15/2017 Subjective: The patient was seen this morning for followup. She is able to get in and out of bed to use the bedside commode with assistance that was noted this morning. Denies any nausea vomiting, ab dominal pain. No chest pain. No shortness of breath. The patient had 2 episodes of paroxysmal atri al fibrillation with heart rate around 140 per minute. She was asymptomatic and she spontaneously co nverted to sinus rhythm. Objective: Vital Signs: Reviewed. HEENT: Unremarkable. Lungs: Clear to auscultation. Heart: Sounds normal. Abdomen: Soft. Bowel sounds normal. No guarding, rigidity, tenderness, or distention. Extremities: No leg edema. Laboratory Data: White count 8.5, hemoglobin 9.6, platelets 94. Sodium 135, potassium 4.3, chloride 103, bicarb 25, BUN 11, creatinine 0.54, glucose 116, magnesium 2. Impression: 1.Left superior and inferior pubic ramus fracture. 2.Left shoulder acromion fracture. 3.Atrial fibrillation, paroxysmal. 4.Anemia. 5.Hypertension. 6.Osteoporosis. 7.Osteoarthritis, multiple sites. Plan: We will continue current medications, add Eliquis, discontinue aspirin, continue other current medications, consult Cardiology for atrial fibrillation, and I will see her tomorrow for followup. Her TSH was normal at 4.63 on 018. RUDI/MODL Voice ID: [id number] Report ID: [id number]
[2017-09-15] MEDS: TIZANIDINE 4 MG TABLET PO SCH (20:14)
[2017-09-15] MEDS: ATORVASTATIN 10 MG TAB PO SCH (20:14)
[2017-09-16] MEDS: TRAMADOL HCL 50 MG TAB PO SCH ×3 (09:10→20:23)
--- NOTE | 2017-09-16 09:26 | CON ---
Date of Consultation: 09/15/2017 Reason For Consultation: Short run of atrial fibrillation. History Of Present Illness: Ms. Ivey is an 87-year-old woman who came in with pubic fracture on 09/12/2017. She was in normal rhythm. Then, she had a blood pressure of 171/74. She has a pacemak er, was intermittently paced, but had a short run of atrial fibrillation without any symptoms on hemo dynamic compromise. Denied chest pain, shortness of breath, nausea, vomiting, diaphoresis, PND, orth opnea, pedal edema, palpitations, or syncope. O2 saturation had been consistent in the 92% to 93% on nasal cannula. She is in a paced rhythm this morning. Past Medical History: Includes history of seizures, hypertension, and hypothyroidism. Allergies: NONE. Review of Systems: Negative. Social History: Negative. Family History: Noncontributory. Medications: Include Synthroid, losartan, Pravachol, magnesium. Physical Examination: Vital Signs: Stable. She was afebrile. She was in a paced rhythm. HEENT: Negative. Neck: Supple with no bruit. Chest: Clear to auscultation and percussion. Cardiac: Revealed a regular rhythm and rate without any murmurs, gallops, or rubs. Abdomen: Benign. Extremities: Revealed no clubbing, cyanosis, or edema. Diagnostic Data: Shows a hemoglobin of 9.6. Creatinine was 0.54. BNP and troponin were negative. Her magnesium level was normal. Potassium was normal. Chest x-ray was unremarkable. EKG showed atr ial paced rhythm with occasional PVCs. Impression And Plan: 1.Paroxysmal atrial fibrillation, probably occurring more often than we think. 2.History of hypertension. 3.History of dyslipidemia. 4.Hypothyroidism. 5.Recent pubic fracture. No plans for surgery. Ms. Ivey's medical regimen is appropriate. She is on losartan for her blood pressure. She is o n Lipitor for her dyslipidemia. She is on Synthroid for her hypothyroidism. She is occasionally hyp ertensive, she is not now. Certainly, a low-dose beta-travon may be helpful in preventing the atria l fibrillation. Dr. Grant already put her on Eliquis 2.5 mg b.i.d., and I agree with that. If she st ays here later on this week, we will get a 2D echocardiogram on her to rule out any left atrial throm bus or wall motion abnormalities. I will order that for Saturday next . We will continue to foll ow her as needed. PRASANNA Voice ID: [id number] Report ID: [id number]
[2017-09-16] MEDS: LOSARTAN POTASSIUM 50 MG TABLET PO SCH (09:39)
[2017-09-16] MEDS: MAGNESIUM OXIDE 400 MG TAB PO SCH (09:39)
[2017-09-16] MEDS: CALCIUM CARB 500MG/VIT D 200 IU TAB PO SCH (09:39)
[2017-09-16] MEDS: DOCOSAHEXANOIC AC/EPA 1000 MG PO SCH (09:39)
[2017-09-16] MEDS: DOCUSATE NA 100 MG CAP PO SCH ×2 (09:39→20:23)
[2017-09-16] MEDS: MULTIVITAMIN TAB PO SCH (09:39)
[2017-09-16] MEDS: OXcarbazepine 150 MG TAB PO SCH ×2 (09:40→20:22)
[2017-09-16] MEDS: LEVOTHYROXINE SOD 0.075 MG TAB PO SCH (09:40)
[2017-09-16] MEDS: APIXABAN 2.5 MG TABLET PO SCH ×2 (09:40→20:22)
[2017-09-16] MEDS: ACETAMINOPHEN 500 MG TAB PO PRN ×2 (09:51→18:39)
--- NOTE | 2017-09-16 13:26 | PN ---
Date of Progress Note: 09/16/2017 Subjective: The patient was seen this morning for followup. No new complaints or problems reported by the patient. Her pain that she has in her pelvis area with movement is actually better than before. Objective: Vital Signs: Reviewed. HEENT: Unremarkable. Lungs: Clear to auscultation. Heart: Heart sounds normal. Abdomen: Soft. Bowel sounds normal. No guarding, rigidity, tenderness, or distention. Extremities: No leg edema. Impression: 1. Fracture of left shoulder, acromion process. 2. Fracture of left superior and inferior pubic ramus. 3. Hypertension. 4. Hyperlipidemia. 5. Osteoporosis. 6. Osteoarthritis, multiple sites. Plan: We will continue current medications, continue current pain medication. Physical therapy to continue to work with the patient. Tomorrow we will we have rehab reassess patient's need for rehab stay for inpatient rehab therapy. We will see her tomorrow for followup. RUDI/ABDIRIZAK Voice ID: [id number] Report ID: [id number] GREGORIO
[2017-09-16] MEDS: ATORVASTATIN 10 MG TAB PO SCH (20:22)
[2017-09-16] MEDS: TIZANIDINE 4 MG TABLET PO SCH (20:23)
[2017-09-17] MEDS: Morphine 2 MG/2 ML SYR IV PRN (01:03)
[2017-09-17 04:19] LABS: Absolute Lymphocytes (CBC) 1.6 K/uL (0.7-4.9); Absolute Monocytes 0.8 K/uL (0.1-1.3); Absolute Neutrophil 4.5 K/uL (1.8-8.0); Basophils % 0.7 % (0-1.3); Eosinophils % 6.8 % (0-4.4); Hematocrit 26.1 % (36.0-45.0); MCH 34.6 pg (27.0-35.0); MCV 99.3 fL (80-100); MPV 9.7 fL (7.6-11.3); Monocytes % 11.2 % (3.3-12.3); RBC Red Blood Cell Count 2.63 M/uL (3.86-4.86)
[2017-09-17 04:35] LABS: BUN Blood Urea Nitrogen 14 mg/dL (6-20); Bicarbonate 27 mEq/L (21-31); Glucose Level 102 mg/dL (65-120); Potassium 4.3 mEq/L (3.6-5.0); Sodium Level 137 mEq/L (135-145)
--- NOTE | 2017-09-17 09:25 | RAD REPORT ---
EXAM DESCRIPTION: [facility]ark[facility] Single View09/17/2017 8:14 am CLINICAL HISTORY: fever COMPARISON: October 2016 FINDINGS: Bilateral interstitial lung opacities are unchanged. . The heart is mildly enlarged. Pace maker leads are in place IMPRESSION: Bilateral interstitial lung opacities are unchanged presumably representing pulmonary fi brosis
[2017-09-17] MEDS: DOCOSAHEXANOIC AC/EPA 1000 MG PO SCH (10:20)
[2017-09-17] MEDS: APIXABAN 2.5 MG TABLET PO SCH ×2 (10:20→20:21)
[2017-09-17] MEDS: MAGNESIUM OXIDE 400 MG TAB PO SCH (10:20)
[2017-09-17] MEDS: CALCIUM CARB 500MG/VIT D 200 IU TAB PO SCH (10:21)
[2017-09-17] MEDS: DOCUSATE NA 100 MG CAP PO SCH ×2 (10:21→20:21)
[2017-09-17] MEDS: TRAMADOL HCL 50 MG TAB PO SCH ×3 (10:21→20:22)
[2017-09-17] MEDS: LOSARTAN POTASSIUM 50 MG TABLET PO SCH (10:22)
[2017-09-17] MEDS: MULTIVITAMIN TAB PO SCH (10:22)
[2017-09-17] MEDS: LEVOTHYROXINE SOD 0.075 MG TAB PO SCH (10:22)
[2017-09-17] MEDS: OXcarbazepine 150 MG TAB PO SCH ×2 (10:23→20:24)
[2017-09-17 11:27] LABS: Urine Appearance CLOUDY; Urine Bilirubin NEGATIVE (NEG); Urine Blood 2+ (NEG); Urine Color YELLOW; Urine Glucose NEGATIVE (NEG); Urine Protein TRACE (NEG); Urine Urobilinogen 0.2 mg/dL (0.2-1.0); Urine pH 8.5 (5.0-7.0)
[2017-09-17 12:09] LABS: Urine Bacteria >50 /HPF (<20); Urine Culture Reflex Order REFLEXED
--- NOTE | 2017-09-17 15:43 | ECHO ---
HEIGHT: 5 ft 2 in WEIGHT: 103 lb 0 oz DATE OF STUDY: 09/17/[address]: Michael Grant MD 2-DIMENSIONAL: YES M.MODE: YES DOPPLER: YES COLOR FLOW: YES TDS: NO PORTABLE: NO DEFINITY: NO BUBBLE STUDY: NO DIAGNOSIS: ATRIAL FIBRILLATION CARDIAC HISTORY: CATHERIZATION: NO SURGERY: NO PROSTHETIC VALVE: NO PACEMAKER: YES MEASUREMENTS (cm) DIASTOLIC (NORMALS) SYSTOLIC (NORMALS) IVSd 1.0 (0.6-1.2) LA Diam 3.2 (1.9-4.0) LVEF 62% LVIDd 3.7 (3.5-5.7) LVIDs 2.5 (2.0-3.5) %FS 33% LVPWd 1.0 (0.6-1.2) Ao Diam 2.6 (2.0-3.7) 2 DIMENSIONAL ASSESSMENT: RIGHT ATRIUM: NORMAL LEFT ATRIUM: NORMAL RIGHT VENTRICLE: NORMAL LEFT VENTRICLE: NORMAL TRICUSPID VALVE: NORMAL MITRAL VALVE: NORMAL PULMONIC VALVE: NORMAL AORTIC VALVE: NORMAL PERICARDIAL EFFUSION: NONE AORTIC ROOT: NORMAL LEFT VENTRICULAR WALL MOTION: NORMAL. DOPPLER/COLOR FLOW: NORMAL COMMENTS: NORMAL 2D ECHO WITH DOPPLER. NO WALL MOTION ABNORMALITY. NO EFFUSION. NORMAL LEFT VENTRICULAR SIZE AND FUNCTION. NO THROMBUS. TECHNOLOGIST: MADISON STEVENS
[2017-09-17] MEDS: ATORVASTATIN 10 MG TAB PO SCH (20:21)
[2017-09-17] MEDS: TIZANIDINE 4 MG TABLET PO SCH (20:22)
--- NOTE | 2017-09-18 01:34 | PN ---
Date of Progress Note: 09/17/2017 Subjective: The patient was seen this morning for followup. Denied any complaints except pain in he r left pelvis region when she moves. No nausea or vomiting. Objective: Vital Signs: Reviewed. HEENT: Examination unremarkable. Lungs: Clear to auscultation. Heart: Sounds normal. Abdomen: Soft, bowel sounds normal. No guarding, rigidity, tenderness, or distention. Extremities: No leg edema. Laboratory Data: White count 7.5, hemoglobin 9.1, platelets 140, sodium 137, potassium 4.3, chloride 105, bicarb 27, BUN 14, creatinine 0.62, and glucose 102. Impression: 1.Paroxysmal atrial fibrillation. 2.Anemia. 3.Fracture of left superior and inferior pubic ramus. 4.Hypertension. 5.Osteoporosis. Plan: We will continue current medications. Eliquis will be continued. Continue current antihypert ensive medication and we will see her tomorrow for followup. The patient is having low grade fever a nywhere between 99-100 degrees Fahrenheit. Urinalysis, urine culture, and chest x-ray was ordered. We will follow up on the results. She denies any burning sensation on urination. Denies any expecto ration, cough, congestion, or any shortness of breath type of problem. Depending on what we hear fro m Rehab Floor, we will decide if she can go to inpatient rehab or not, if she cannot, then [facility] facility placement will be necessary and I did discuss these details with the patient's nephe w who takes care of her. RUDI/MODL Voice ID: [id number] Report ID: [id number]
[2017-09-18] MEDS: DOCOSAHEXANOIC AC/EPA 1000 MG PO SCH (09:22)
[2017-09-18] MEDS: LOSARTAN POTASSIUM 50 MG TABLET PO SCH (09:22)
[2017-09-18] MEDS: CALCIUM CARB 500MG/VIT D 200 IU TAB PO SCH (09:22)
[2017-09-18] MEDS: LEVOTHYROXINE SOD 0.075 MG TAB PO SCH (09:22)
[2017-09-18] MEDS: MAGNESIUM OXIDE 400 MG TAB PO SCH (09:22)
[2017-09-18] MEDS: APIXABAN 2.5 MG TABLET PO SCH ×2 (09:22→21:03)
[2017-09-18] MEDS: DOCUSATE NA 100 MG CAP PO SCH ×2 (09:22→21:03)
[2017-09-18] MEDS: TRAMADOL HCL 50 MG TAB PO SCH ×3 (09:23→21:08)
[2017-09-18] MEDS: MULTIVITAMIN TAB PO SCH (09:23)
[2017-09-18] MEDS: OXcarbazepine 150 MG TAB PO SCH ×2 (09:24→21:08)
[2017-09-18] MEDS: CEFTRIAXONE/SWI 1gm 1 GM/10 ML SYR IV SCH ×2 (10:55→21:03)
[2017-09-18] MEDS: ATORVASTATIN 10 MG TAB PO SCH (21:03)
[2017-09-18] MEDS: TIZANIDINE 4 MG TABLET PO SCH (21:08)
--- NOTE | 2017-09-18 21:16 | PN ---
Date of Progress Note: 09/18/2017 Subjective: The patient was seen this morning for followup. She was not feeling good this morning s he reported and was complaining of some sore throat. Denies any cough or congestion. No expectorati on. No abdominal pain, nausea, or vomiting. Objective: Vital Signs: Reviewed. HEENT: Unremarkable. Lungs: Clear to auscultation. Heart: Sounds normal. Abdomen: Soft. Bowel sounds normal. No guarding, rigidity, tenderness, or distention. Extremities: No leg edema. Laboratory Data: Chest x-ray, no pneumonia. Urinalysis was abnormal. Impression: 1.Urinary tract infection. 2.Fracture, left superior and inferior pubic ramus with displacement. 3.Fracture, left acromion process of left shoulder. 4.Hypertension. 5.Osteoporosis. 6.Osteoarthritis, multiple sites. 7.Paroxysmal atrial fibrillation. Plan: We will continue the patient's Eliquis. Continue other current medications including her pain medication Lovenox. Start the patient on ceftriaxone 1 g IV every 12 hours. Physical therapy to co shanelle to work with the patient and inpatient rehab has denied because of lack of participation with physical therapy and not able to do 3 hours of in terms physical therapy on a daily basis so the best option is to consider to go to [facility] facility and social service assistant will assist with that. RUDI/ABDIRIZAK Voice ID: [id number] Report ID: [id number]
[2017-09-19] MEDS: APIXABAN 2.5 MG TABLET PO SCH ×2 (08:53→20:59)
[2017-09-19] MEDS: CALCIUM CARB 500MG/VIT D 200 IU TAB PO SCH (08:53)
[2017-09-19] MEDS: DOCUSATE NA 100 MG CAP PO SCH ×2 (08:54→20:59)
[2017-09-19] MEDS: LEVOTHYROXINE SOD 0.075 MG TAB PO SCH (08:54)
[2017-09-19] MEDS: TRAMADOL HCL 50 MG TAB PO SCH ×3 (08:54→20:59)
[2017-09-19] MEDS: DOCOSAHEXANOIC AC/EPA 1000 MG PO SCH (08:54)
[2017-09-19] MEDS: MULTIVITAMIN TAB PO SCH (08:54)
[2017-09-19] MEDS: LOSARTAN POTASSIUM 50 MG TABLET PO SCH (08:55)
[2017-09-19] MEDS: OXcarbazepine 150 MG TAB PO SCH ×2 (08:56→21:00)
[2017-09-19] MEDS ORDERED: MAGNESIUM OXIDE 250 MG PO SCH (09:00)
[2017-09-19] MEDS: CEFTRIAXONE/SWI 1gm 1 GM/10 ML SYR IV SCH ×2 (09:12→20:59)
--- NOTE | 2017-09-19 11:02 | RAD REPORT ---
EXAM DESCRIPTION: RAD - Abdomen 1 View (KUB) - 09/19/2017 10:47 am CLINICAL HISTORY: Abdomen pain. FINDINGS: Air is present throughout nondilated large and small bowel in a nonspecific fashion. This probably represents an adynamic ileus. A moderate amount of stool is present throughout the colon.
[2017-09-19] MEDS: ACETAMINOPHEN 500 MG TAB PO PRN (11:37)
[2017-09-19] MEDS ORDERED: BISACODYL 10 MG RECTAL SUPP PR ONE (12:05)
[2017-09-19] MEDS: TIZANIDINE 4 MG TABLET PO SCH (20:59)
[2017-09-19] MEDS: ATORVASTATIN 10 MG TAB PO SCH (20:59)
--- NOTE | 2017-09-20 00:14 | PN ---
Date of Progress Note: 09/19/2017 Subjective: The patient was seen this morning for followup. When I saw her, she informed me she was not feeling good, did not have any specific complaints, but overall reported that she was not feelin g good. She does not know when her last bowel movement was. Denies any sore throat, but she had rep orted yesterday. No cough, congestion. No shortness of breath. Denies any abdominal pain, nausea, vomiting. Objective: Vital Signs: Reviewed. HEENT: Unremarkable. Lungs: Clear to auscultation. Heart: Sounds normal. Abdomen: Soft, appears slightly distended and firm. No guarding, rigidity, tenderness. Extremities: No leg edema. Laboratory Data: Urine culture growing Klebsiella and it is sensitive to Rocephin that the patient i s currently on. Impression: 1.Fracture, left superior and inferior pubic ramus. 2.Left acromion fracture. 3.Ileus. 4.Constipation. 5.Urinary tract infection. Plan: After I examined her, I ordered stat abdominal x-ray, which revealed presence of adynamic ileu s type of pattern and some constipation. The patient has milk of magnesia ordered on a p.r.n. basis, I am not sure when nursing staff had given her last dose of milk of magnesia, but after today's x-ra y, I have ordered Dulcolax rectal suppository for her. We will change her diet and give her clear li quid diet. I will re-examine her tomorrow. Continue other current medications including antibiotics and I will see her tomorrow for followup. Social service to assist with [facility] facility placement. RUDI/MODL Voice ID: [id number] Report ID: [id number]
[2017-09-20] MEDS: MAGNESIUM HYDROXIDE 8% 30 ML PO PRN (09:39)
[2017-09-20] MEDS: TRAMADOL HCL 50 MG TAB PO SCH ×3 (09:40→20:18)
[2017-09-20] MEDS: DOCUSATE NA 100 MG CAP PO SCH ×2 (09:40→20:17)
[2017-09-20] MEDS: APIXABAN 2.5 MG TABLET PO SCH ×2 (09:40→20:17)
[2017-09-20] MEDS: OXcarbazepine 150 MG TAB PO SCH ×2 (09:41→20:26)
[2017-09-20] MEDS: LOSARTAN POTASSIUM 50 MG TABLET PO SCH (09:41)
[2017-09-20] MEDS: LEVOTHYROXINE SOD 0.075 MG TAB PO SCH (09:41)
[2017-09-20] MEDS: MULTIVITAMIN TAB PO SCH (09:41)
[2017-09-20] MEDS: CEFTRIAXONE/SWI 1gm 1 GM/10 ML SYR IV SCH ×2 (09:41→20:19)
[2017-09-20] MEDS: DOCOSAHEXANOIC AC/EPA 1000 MG PO SCH (09:41)
[2017-09-20] MEDS: CALCIUM CARB 500MG/VIT D 200 IU TAB PO SCH (10:25)
--- NOTE | 2017-09-20 13:22 | RAD REPORT ---
EXAM DESCRIPTION: RAD - Abdomen 1 View (KUB) - 09/20/2017 12:32 pm CLINICAL HISTORY: Ileus, constipation, abdominal pain COMPARISON: September 19 FINDINGS: Stool volume has been substantially reduced since the prior day imaging. Air-filled, nondi lated small bowel loops are present also diminished in prominence. No free air or pneumatosis have de veloped. No acute bone finding. No suspicious calcifications. IMPRESSION: Marked reduction in the stool volume since prior day imaging. Small bowel pattern is prominent but reduced as well. No emergent finding.
--- NOTE | 2017-09-20 18:51 | DS ---
Date of Discharge: 09/20/2017 Disposition: Discharged to go to [facility]. Physical Examination: HEENT: Unremarkable. Lungs: Clear to auscultation. Heart: Sounds normal. Abdomen: Soft. Bowel sounds normal. No guarding, rigidity, tenderness, or distention. Extremities: No leg edema. Discharge Medications And Instructions: 1.Continue all prior home medication, except stop aspirin. 2.Start Eliquis 2.5 mg 2 times a day for atrial fibrillation. 3.Dulcolax rectal suppository every week. 4.Levaquin 500 mg p.o. daily for 7 days. 5.Senokot-S 2 tablets p.o. daily. 6.Tramadol 50 mg p.o. 3 times a day for pain. 7.Consult Physical Therapy and Occupational Therapy. 8.Fall precautions. 9.correction physician to monitor CBC, chem-7, and magnesium level on a regular basis. Hospital Course: An 87-year-old female patient, who was admitted to the hospital after she fell down at home. Please see dictated H and P for more information. The patient lives at home with her [facility] ly members. She fell in the bathroom. After she was brought into the emergency room, further evalua tion revealed that the patient had fracture of the left superior and inferior pubic ramus. She also had fracture of the left shoulder involving acromion process. Orthopedic consultation was obtained f christo Bardales. No surgical intervention was recommended. Conservative treatment with pain medication and therapy was suggested. DVT prophylaxis was started using Lovenox and during the course of this hospitalization, the patient developed atrial fibrillation. This was paroxysmal atrial fibrillation and we did consult Cardiology Service and echocardiogram was done. Echocardiogram showed normal ejec tion fraction. The patient was started on Eliquis 2.5 mg twice a day and Lovenox was discontinued. The patient was given IV pain medication. Morphine and tramadol were started on a scheduled basis. She really has not participated much with physical therapy. Inpatient rehab denied her to go to [facility] because of lack of participation on the patient's part. Social Service was consulted to assist with custodial facility placement and today after all the arrangements completed, the reed dumont was discharged to go to facility of family's choice. She did develop some urinary tract infect ion a few days ago and she had low-grade fever at that time. Chest x-ray was done, which was negativ e for pneumonia. Urine culture was obtained and antibiotic, ceftriaxone was started. The patient's urine culture results came back and bacteria is sensitive to ceftriaxone and multiple other oral anti biotics. The patient also had some ileus and constipation problem and that resolved with treatment. Final Diagnoses: 1.Left superior and inferior pubic ramus fracture with [id number] displacement. 2.Left shoulder fracture involving acromion process. 3.Urinary tract infection. 4.Paroxysmal atrial fibrillation. 5.Osteoporosis. 6.Osteoarthritis, multiple sites. 7.Mixed hyperlipidemia. 8.Seizure disorder. 9.Hypothyroidism. 10.Hypertension. 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 12.Anemia. 13.Thrombocytopenia. 14.Hypokalemia. RUDI/MODL Voice ID: [id number] Report ID: [id number]
[2017-09-20] MEDS: ATORVASTATIN 10 MG TAB PO SCH (20:18)
[2017-09-20] MEDS: TIZANIDINE 4 MG TABLET PO SCH (20:19)
[2017-09-20] MEDS: ACETAMINOPHEN 500 MG TAB PO PRN (23:04)
[2017-09-21] MEDS: MULTIVITAMIN TAB PO SCH (08:11)
[2017-09-21] MEDS: TRAMADOL HCL 50 MG TAB PO SCH (08:11)
[2017-09-21] MEDS: CALCIUM CARB 500MG/VIT D 200 IU TAB PO SCH (08:11)
[2017-09-21] MEDS: DOCOSAHEXANOIC AC/EPA 1000 MG PO SCH (08:12)
[2017-09-21] MEDS: APIXABAN 2.5 MG TABLET PO SCH (08:12)
[2017-09-21] MEDS: OXcarbazepine 150 MG TAB PO SCH (08:12)
[2017-09-21] MEDS: LOSARTAN POTASSIUM 50 MG TABLET PO SCH (08:12)
[2017-09-21] MEDS: LEVOTHYROXINE SOD 0.075 MG TAB PO SCH (08:12)
[2017-09-21] MEDS: MAGNESIUM HYDROXIDE 8% 30 ML PO PRN (08:12)
[2017-09-21] MEDS: DOCUSATE NA 100 MG CAP PO SCH (08:12)
[2017-09-21] MEDS: CEFTRIAXONE/SWI 1gm 1 GM/10 ML SYR IV SCH (08:54)
== END 2017-09-21 09:16 | DRG 536 ==
LOC: ER 08:07 → ERHOLD 11:00 → 2ND 11:53 → 4TH 09-14 14:35
PROVIDERS: ADMIT Internal Medicine; ATTEND Internal Medicine
DX: S32.512A Fracture of superior rim of left pubis, initial encounter for closed fracture (principal); N39.0 Urinary tract infection, site not specified; K56.0 Paralytic ileus; S32.592A Other specified fracture of left pubis, initial encounter for closed fracture; S42.122A Displaced fracture of acromial process, left shoulder, initial encounter for closed fracture; W01.0XXA Fall on same level from slipping, tripping and stumbling without subsequent striking against object, initial encounter; Y92.002 Bathroom of unspecified non-institutional (private) residence as the place of occurrence of the external cause; I48.0 Paroxysmal atrial fibrillation; D64.9 Anemia, unspecified; I10 Essential (primary) hypertension; M81.0 Age-related osteoporosis without current pathological fracture; M19.90 Unspecified osteoarthritis, unspecified site; B96.1 Klebsiella pneumoniae [K. pneumoniae] as the cause of diseases classified elsewhere; E78.2 Mixed hyperlipidemia; G40.909 Epilepsy, unspecified, not intractable, without status epilepticus; Z95.0 Presence of cardiac pacemaker; D69.6 Thrombocytopenia, unspecified; E87.6 Hypokalemia; K59.00 Constipation, unspecified
CPT/HCPCS: 36415; 71045; 72170; 74018; 80048; 80053; 81001; 81003; 82962; 83735; 84132; 84443; 85025; 87077; 87086; 87088; 87186; 93005; 93306; 96374; 96375; 97163; 99285; J0696; J1650; J2270; J2405; J3010; J7030

== ENCOUNTER 2018-07-05 15:19 | Emergency (ER) | payer MEDICARE ==
[2018-07-05 15:59] LABS: Absolute Lymphocytes (CBC) 1.4 K/uL (0.7-4.9); Absolute Monocytes 1.1 K/uL (0.1-1.3); Absolute Neutrophil 10.1 K/uL (1.8-8.0); Basophils % 0.4 % (0-1.3); Eosinophils % 0.7 % (0-4.4); Hematocrit 39.1 % (36.0-45.0); Lymphocytes % 10.9 % (15.3-44.8); MPV 8.9 fL (7.6-11.3); Monocytes % 8.7 % (3.3-12.3); RBC Red Blood Cell Count 3.94 M/uL (3.86-4.86)
[2018-07-05 16:07] LABS: Protime INR 1.33
[2018-07-05 16:14] LABS: BUN Blood Urea Nitrogen 12 mg/dL (7-18); Bicarbonate 28 mmol/L (21-32); Glucose Level 111 mg/dL (74-106); Sodium Level 140 mmol/L (136-145)
--- NOTE | 2018-07-05 16:20 | RAD REPORT ---
EXAM DESCRIPTION: CT - [id number] - 07/05/2018 3:57 pm CLINICAL HISTORY: Trauma, head and neck injury. fall, head injury COMPARISON: No comparisons TECHNIQUE: Axial 5 mm thick images of the head were obtained. Axial 2 mm thick images of the cervical spine were obtained with sagittal and coronal reconstruction images generated and reviewed. All CT scans are performed using dose optimization technique as appropriate and may include automated exposure control or mA/KV adjustment according to patient size. FINDINGS: CT HEAD WITHOUT CONTRAST: No acute hemorrhage, hydrocephalus or extra-axial collection is identified.Moderate generalized brain atrophy is present with moderate periventricular and deep white matter chronic microvascular ischemi c changes.No areas of brain edema or midline shift. The paranasal sinuses and mastoids are clear.The calvarium is intact. CT CERVICAL SPINE WITHOUT CONTRAST: No fracture or traumatic subluxation.Advanced multilevel cervical degenerative changes are present.De generative 5 mm anterolisthesis of C7 on T1. The odontoid is normal lateral masses are symmetric. IMPRESSION: No acute intracranial or cervical spine findings. Advanced degenerative cervical spine findings.
--- NOTE | 2018-07-05 16:27 | ER ---
Nurse's Notes [facility] Name: Michele Ivey Age: 87 yrs Sex: Female : 1930 Arrival Date: 07/05/2018 Time: 15:22 Bed 4 Private MD: Diagnosis: Superficial injury of unspecified part of head Presentation: 07/05 15:23 Presenting complaint: EMS states: from [facility], pt fell from sitting hj position, neg LOC, taking blood thinners, pt is A\T\O x4; hematoma to L eye; complaining of L arm, R hand, L foot, L hip pain; BP- 142/76; HR- 96; T- 97.5; BGL- 116;. Transition of care: patient was received from another setting of care (long-term care facility), [facility]. Onset of symptoms was July 05, 2018. Risk Assessment: Do you want to hurt yourself or someone else? Patient reports no desire to harm self or others. Initial Sepsis Screen: Does the patient meet any 2 criteria? No. Patient's initial sepsis screen is negative. Does the patient have a suspected source of infection? No. Patient's initial sepsis screen is negative. Care prior to arrival: None. 15:23 Method Of Arrival: EMS: [facility] 15:23 Acuity: PARISA 4 15:27 Mechanism of Injury: Fall out of chair. Trauma event details: Injury occurred in the [facility], Injury occurred: at home. Injury occurred: July 05, 2018. Triage Assessment: 15:27 General: Appears in no apparent distress. uncomfortable, Behavior is calm, cooperative, hj appropriate for age. 16:31 Pain: Complains of pain in L eye, L arm, R hand, L leg. Trauma Activation: Not Applicable Physician: ED Physician; Name: ; Notified At: ; Arrived At: Physician: General Surgeon; Name: ; Notified At: ; Arrived At: Physician: Radiology; Name: ; Notified At: ; Arrived At: Physician: Respiratory; Name: ; Notified At: ; Arrived At: Physician: Lab; Name: ; Notified At: ; Arrived At: Historical: - Allergies: 15:27 No Known Allergies; hj - Home Meds: 16:09 bisacodyl 10 mg Rectal supp [Active]; Eliquis 2.5 mg oral tab [Active]; ibandronate 150 pc1 mg oral tab [Active]; losartan 50 mg oral tab [Active]; Miralax 17 gram/dose oral powd [Active]; oxcarbazepine 300 mg oral tab [Active]; Remeron 30 mg oral tab [Active]; - PMHx: 15:27 Hypertension; Hypothyroidism; Seizures; hj 16:09 Dementia; Atrial Fib; Hyperlipidemia; pc1 - PSHx: 15:27 Unable to obtain; hj - Immunization history:: Adult Immunizations up to date. - Social history:: Smoking status: Patient/guardian denies using tobacco, Patient/guardian denies using alcohol. - Immunization history: Last tetanus immunization: - up to date. - Ebola Screening: : Patient negative for fever greater than or equal to 101.5 degrees Fahrenheit, and additional compatible Ebola Virus Disease symptoms Patient denies exposure to infectious person Patient denies travel to an Ebola-affected area in the 21 days before illness onset. - Family history:: not pertinent. - Hospitalizations: : No recent hospitalization is reported. Screenin:31 Abuse screen: Denies threats or abuse. Denies injuries from another. Nutritional hj screening: No deficits noted. Tuberculosis screening: No symptoms or risk factors identified. Fall Risk Fall in past 12 months (25 points). Secondary diagnosis (15 points). Primary Survey: 15:31 NO uncontrolled hemorrhage observed. A: The patient is alert. Airway: patent, No hj supplemental oxygen in use on arrival. Oral cavity: clear, gag reflex present, Trachea midline. Breathing/Chest: Respiratory pattern: regular, Respiratory effort: spontaneous, unlabored, Breath sounds: clear, Chest inspection: symmetrical rise and fall of the chest. Circulation: Cardiac rhythm: sinus rhythm Heart tones present. Pulses: palpable right radial artery, right posterior tibial artery, left radial artery and left posterior tibial artery. Skin color: pink, Skin temperature: warm, dry. Disability Alert. Exposure/Environment: All clothing and personal items were removed. Forensic evidence collection is not deemed to be indicated at this time. Items placed in patient belonging bag. There is no evidence of uncontrolled external bleeding. No obvious injuries are noted at this time. A warming method has been applied: A warm blanket has been provided to the patient. 15:51 Reassessment Airway Airway Patent Oxygen No O2 Oral cavity Clear +Gag reflex Trachea hj Midline Breathing/Chest Respiratory pattern Regular Respiratory effort Spontaneous Unlabored Breath sounds Clear Chest inspection Symmetrical Circulation Heart rhythm Sinus rhythm Heart tones Present Pulses Palpable Color [place] Temperature Warm Dry Disability Alert. 17:30 Reassessment Airway Airway Patent Oxygen No O2 Oral cavity Clear +Gag reflex Trachea hj Midline Breathing/Chest Respiratory pattern Regular Respiratory effort Spontaneous Unlabored Breath sounds Clear Chest inspection Symmetrical Circulation Heart rhythm Sinus rhythm Heart tones Present Pulses Palpable Color [place] Temperature Warm Dry Disability Alert. Secondary Survey: 15:31 HEENT: Eyes: Other hematoma. Gastrointestinal: No deficits noted. : No signs and/or hj symptoms were reported regarding the genitourinary system. Musculoskeletal: Reports. Assessment: 16:32 General: Appears in no apparent distress. uncomfortable, Behavior is calm, cooperative, hj appropriate for age. Pain: Complains of pain in L eye, L arm, R hand, leg. Neuro: Level of Consciousness is awake, alert, obeys commands, Oriented to person, place, time, situation, Appropriate for age. Cardiovascular: Capillary refill < 3 seconds Patient's skin is warm and dry. Respiratory: Airway is patent Respiratory effort is even, unlabored, Respiratory pattern is regular, symmetrical. GI: No signs and/or symptoms were reported involving the gastrointestinal system. : No signs and/or symptoms were reported regarding the genitourinary system. EENT: No signs and/or symptoms were reported regarding the EENT system. Derm: No signs and/or symptoms reported regarding the dermatologic system. Musculoskeletal: No signs and/or symptoms reported regarding the musculoskeletal system. 16:41 Reassessment: reports called to Dora Cortes of [facility], will send transport hj services to [employer] sewing [employer] pt;. 17:24 Reassessment: Patient and/or family updated on plan of care and expected duration. Pain hj level reassessed. Patient is alert, oriented x 3, equal unlabored respirations, skin warm/dry/pink. awaiting for transport service from [facility]. 17:34 Reassessment: Patient and/or family updated on plan of care and expected duration. Pain hj level reassessed. Patient is alert, oriented x 3, equal unlabored respirations, skin warm/dry/pink. called [facility] and followed up about transport service; states, they are still looking a someone to pick pt up;. 18:08 Reassessment: Patient and/or family updated on plan of care and expected duration. Pain hj level reassessed. Patient is alert, oriented x 3, equal unlabored respirations, skin warm/dry/pink. 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 Vital Signs: 15:30 BP 157 / 82; Pulse 92; Resp 18; Pulse Ox 93% on R/A; Weight 56.7 kg; Height 5 ft. 0 in. hj (152.40 cm); 17:27 BP 148 / 71; Pulse 100; Resp 18; Pulse Ox 100% on R/A; hj 17:49 BP 150 / 89; Pulse 109; Resp 18; Pulse Ox 95% on R/A; pc1 15:30 Body Mass Index 24.41 (56.70 kg, 152.40 cm) [place] Coma Score: 15:27 Eye Response: spontaneous(4). Verbal Response: oriented(5). Motor Response: obeys hj commands(6). Total: 15. Trauma Score (Adult): 15:27 Eye Response: spontaneous(1); Verbal Response: oriented(1); Motor Response: obeys hj commands(2); Systolic BP: > 89 mm Hg(4); Respiratory Rate: 10 to 29 per min(4); Jacquelin Score: 15; Trauma Score: 12 ED Course: 15:22 Patient arrived in ED. hj 15:25 Triage completed. hj 15:27 Arm band placed on right wrist. hj 15:28 Justus Guillermo MD is Attending Physician. rn 15:30 Christian Hernandez RN is Primary Nurse. hj 15:[address] mw3 15:45 Initial lab(s) drawn, by ne, sent to lab. Inserted saline lock: 22 gauge in left antecubital area, using aseptic technique. Blood collected. 15:49 Protime (+inr) Sent. hj 15:49 Ptt, Activated Sent. 15:49 Basic Metabolic Panel Sent. 15:49 CBC with Diff Sent. hj 15:52 Patient maintains SpO2 saturation greater than 95% on room air. hj 15:52 Patient has correct armband on for positive identification. Bed in low position. Call light in reach. Side rails up X2. 15:57 CT Head C Spine In Process Unspecified. EDMS 16:30 No provider procedures requiring assistance completed. IV discontinued, intact, hj bleeding controlled, No redness/swelling at site. Pressure dressing applied. 16:31 Thermoregulation: warm blanket given to patient. hj Administered Medications: No medications were administered Intake: 16:39 PO: 0ml; Total: 0ml. hj Output: 16:39 Urine: 0ml; Total: 0ml. hj Outcome: 16:26 Discharge ordered by MD. rn 16:38 Discharged to [facility]. Report called to Dora Lopez Transfer form completed. 16:38 Condition: stable 16:38 Discharge instructions given to patient, [facility], Instructed on discharge instructions, follow up and referral plans. Demonstrated understanding of instructions, follow-up care. 16:40 Patient's length of stay was not longer than 2 hours. 18:43 Patient left the ED. hj Signatures: Dispatcher [employer] EDMS Justus Guillermo MD MD rn Joaquin, Henry, RN RN hj Willis, Michelle mw3 Stefan Sanabria [facility]
--- NOTE | 2018-07-05 16:27 | EDPHYS ---
Physician Documentation [facility] Name: Michele Ivey Age: 87 yrs Sex: Female : 1930 Arrival Date: 07/05/2018 Time: 15:22 Bed 4 Private MD: ED Physician Justus Guillermo HPI: 07/05 15:35 This 87 yrs old Female presents to ER via EMS with complaints of Fall Injury. rn 15:35 Details of fall: The patient fell from seated position. rn 15:36 Onset: The symptoms/episode began/occurred today. Associated injuries: The patient rn sustained injury to the head. Severity of symptoms: At their worst the symptoms were very mild, in the emergency department the symptoms are unchanged. It is unknown whether or not the patient has had similar symptoms in the past. Per report, patient fell from seated position, no LOC, hit head, no other injuries, no vomiting. Possibly on blood thinner. . Historical: - Allergies: 15:27 No Known Allergies; hj - Home Meds: 16:09 bisacodyl 10 mg Rectal supp [Active]; Eliquis 2.5 mg oral tab [Active]; ibandronate 150 pc1 mg oral tab [Active]; losartan 50 mg oral tab [Active]; Miralax 17 gram/dose oral powd [Active]; oxcarbazepine 300 mg oral tab [Active]; Remeron 30 mg oral tab [Active]; - PMHx: 15:27 Hypertension; Hypothyroidism; Seizures; hj 16:09 Dementia; Atrial Fib; Hyperlipidemia; pc1 - PSHx: 15:27 Unable to obtain; hj - Immunization history:: Adult Immunizations up to date. - Social history:: Smoking status: Patient/guardian denies using tobacco, Patient/guardian denies using alcohol. - Immunization history: Last tetanus immunization: - up to date. - Ebola Screening: : Patient negative for fever greater than or equal to 101.5 degrees Fahrenheit, and additional compatible Ebola Virus Disease symptoms Patient denies exposure to infectious person Patient denies travel to an Ebola-affected area in the 21 days before illness onset. - Family history:: not pertinent. - Hospitalizations: : No recent hospitalization is reported. ROS: 15:37 Constitutional: Negative for fever, chills, and weight loss, Eyes: + pain to outside of rn left eye Neck: Negative for injury, pain, and swelling, Cardiovascular: Negative for chest pain Respiratory: Negative for shortness of breath Abdomen/GI: Negative for abdominal pain, nausea, vomiting, diarrhea Back: Negative for injury and pain, MS/Extremity: Negative for injury and deformity, Skin: Negative for injury, rash Neuro: Negative for headache, weakness, numbness, tingling, and seizure. Exam: 15:37 Constitutional: Thin female, sleeping, easily arousable Head/Face: Normocephalic, 3cm rn hematoma left brow with subcentimeter laceration, dry blood overlying wound, no depression Eyes: Pupils equal round and reactive to light, extra-ocular motions intact. Lids and lashes normal. Conjunctiva and sclera are non-icteric and not injected. Cornea within normal limits. ENT: No oral trauma, no tenderness over sinuses Neck: Trachea midline, no thyromegaly or masses palpated, and no cervical lymphadenopathy. Supple, full range of motion without nuchal rigidity, or vertebral point tenderness. No Meningismus. Chest/axilla: Normal chest wall appearance and motion. Nontender with no deformity. Abdomen/GI: soft, non-tender MS/ Extremity: Pulses equal, no cyanosis. Neurovascular intact. Full, normal range of motion. Equal circumference. Neuro: Awake and alert, GCS 15, oriented to person, and situation. Cranial nerves II-XII grossly intact. Motor strength 4/5 in all extremities. Sensory grossly intact. Vital Signs: 15:30 BP 157 / 82; Pulse 92; Resp 18; Pulse Ox 93% on R/A; Weight 56.7 kg; Height 5 ft. 0 in. (152.40 cm); 17:27 BP 148 / 71; Pulse 100; Resp 18; Pulse Ox 100% on R/A; hj 17:49 BP 150 / 89; Pulse 109; Resp 18; Pulse Ox 95% on R/A; pc1 15:30 Body Mass Index 24.41 (56.70 kg, 152.40 cm) [place] Coma Score: 15:27 Eye Response: spontaneous(4). Verbal Response: oriented(5). Motor Response: obeys commands(6). Total: 15. Trauma Score (Adult): 15:27 Eye Response: spontaneous(1); Verbal Response: oriented(1); Motor Response: obeys hj commands(2); Systolic BP: > 89 mm Hg(4); Respiratory Rate: 10 to 29 per min(4); [place] Score: 15; Trauma Score: 12 MDM: 15:28 Patient medically screened. rn 16:25 Differential diagnosis: abrasion, closed head injury, contusion. Data reviewed: vital rn signs, nurses notes, lab test result(s), radiologic studies, CT scan, and as a result, I will discharge patient. Counseling: I had a detailed discussion with the patient and/or guardian regarding: the historical points, exam findings, and any diagnostic results supporting the discharge/admit diagnosis, lab results, radiology results, the need for outpatient follow up, to return to the emergency department if symptoms worsen or persist or if there are any questions or concerns that arise at home. Special discussion: Based on the patient's history, exam and DX evaluation, there is no indication for emergent intervention or inpatient TX. It is understood by the patient/guardian that if the SXs persist or worsen they need to return immediately for re-evaluation. I discussed with the patient/guardian in detail that at this point there is no indication for admission to the hospital. It is understood, however, that if the symptoms persist or worsen the patient needs to return immediately for re-evaluation. 07/05 15:35 Order name: CBC with Diff; Complete Time: 16: rn 07/05 15:35 Order name: Basic Metabolic Panel; Complete Time: 16:22 rn 07/05 15:33 Order name: CT Head C Spine; Complete Time: 16:22 rn 07/05 15:35 Order name: IV Start; Complete Time: 15:49 rn 07/05 15:35 Order name: Protime (+inr); Complete Time: 16: rn 07/05 15:35 Order name: Ptt, Activated; Complete Time: 16:22 rn Administered Medications: No medications were administered Disposition: 07/05/18 16:26 Discharged to Home. Impression: Superficial injury of unspecified part of head. - Condition is Stable. - Discharge Instructions: Head Injury, Adult. - Medication Reconciliation Form, Thank You Letter, Antibiotic Education, Prescription Opioid Use form. - Follow up: Private Physician; When: As needed; Reason: Recheck today's complaints, Re-evaluation by your physician. - Problem is new. - Symptoms have improved. Signatures: Dispatcher [employer] EDMS Guillermo, Justus, MD MD rn David, Christian, RN RN hj Sanabria, Stefan pc1 Corrections: (The following items were deleted from the chart) 18:43 16:26 07/05/2018 16:26 Discharged to Home. Impression: Superficial injury of hj unspecified part of head. Condition is Stable. Forms are Medication Reconciliation Form, Thank You Letter, Antibiotic Education, Prescription Opioid Use. Follow up: Private Physician; When: As needed; Reason: Recheck today's complaints, Re-evaluation by your physician. Problem is new. Symptoms have improved. rn
== END 2018-07-05 18:43 | disposition home or self-care (01) ==
LOC: ER 15:19
DX: S09.90XA Unspecified injury of head, initial encounter (principal); W18.30XA Fall on same level, unspecified, initial encounter; I10 Essential (primary) hypertension; E03.9 Hypothyroidism, unspecified; F03.90 Unspecified dementia, unspecified severity, without behavioral disturbance, psychotic disturbance, mood disturbance, and anxiety; E78.5 Hyperlipidemia, unspecified; I48.91 Unspecified atrial fibrillation; Z79.01 Long term (current) use of anticoagulants
CPT/HCPCS: 36415; 70450; 72125; 80048; 85025; 85610; 85730; 99285

== ENCOUNTER 2018-07-08 10:32 | Inpatient (IN) | payer MEDICARE ==
[2018-07-08] MEDS ORDERED: Levofloxacin500mg IV 500 MG/100 ML BAG IV ONE (11:40)
[2018-07-08] MEDS ORDERED: NA CHLORIDE 0.9% 1,000 ML ONE (11:40)
[2018-07-08 11:45] LABS: Absolute Lymphocytes (CBC) 0.9 K/uL (0.7-4.9); Absolute Monocytes 1.2 K/uL (0.1-1.3); Absolute Neutrophil 12.1 K/uL (1.8-8.0); Basophils % 0.2 % (0-1.3); Eosinophils % 0.2 % (0-4.4); Lymphocytes % 6.2 % (15.3-44.8); MPV 9.5 fL (7.6-11.3); Monocytes % 8.5 % (3.3-12.3); RBC Red Blood Cell Count 3.33 M/uL (3.86-4.86)
[2018-07-08 11:48] LABS: Protime INR 1.4
[2018-07-08 11:59] LABS: ALT/SGPT 17 U/L (12-78); AST/SGOT 20 U/L (15-37); Alkaline Phosphatase 101 U/L (45-117); BUN Blood Urea Nitrogen 40 mg/dL (7-18); Bicarbonate 25 mmol/L (21-32); Bilirubin Direct 0.3 mg/dL (0-0.2); Bilirubin Total 0.6 mg/dL (0.2-1.0); CKMB Creatine Kinase MB 1.1 ng/mL (0.3-3.6); Creatine Phosphokinase 357 U/L (26-192); Glucose Level 140 mg/dL (74-106); Lipase 164 U/L (73-393); Potassium 3.7 mmol/L (3.5-5.1); Protein, Total 8.3 g/dL (6.4-8.2); Sodium Level 141 mmol/L (136-145); Troponin (Emerg Dept Use Only) < 0.02 ng/mL (0.0-0.045)
--- NOTE | 2018-07-08 12:40 | RAD REPORT ---
EXAM DESCRIPTION: RAD - Chest Single View - 07/08/2018 12:34 pm CLINICAL HISTORY: FEVER Chest pain. COMPARISON: Abdomen 1 View (KUB) dated 09/20/2017; Abdomen 1 View (KUB) dated 09/19/2017; Chest Single View dated 09/17/2017; Chest Pa And Lat (2 Views) dated 10/31/2016 FINDINGS: Portable technique limits examination quality. The lungs are underinflated with linear opacities in the medial left lung base, suspicious for pneumo jovana or aspiration. The heart is normal in size. Dual lead pacer device is in place. IMPRESSION: Underinflated lungs with linear opacities in the medial left lung base suspicious for as piration or developing pneumonia.
--- NOTE | 2018-07-08 12:40 | RAD REPORT ---
EXAM DESCRIPTION: RAD - Pelvis - 07/08/2018 12:35 pm CLINICAL HISTORY: PAIN COMPARISON: Pelvis dated 09/12/2017 FINDINGS: Old left hemipelvis fractures noted. An acute fracture or dislocation is not seen. The bon es are demineralized.
--- NOTE | 2018-07-08 12:42 | RAD REPORT ---
EXAM DESCRIPTION: RAD - Shoulder Left 2 View - 07/08/2018 12:35 pm CLINICAL HISTORY: Left shoulder pain FINDINGS: No fracture or dislocation is seen. The bones are osteoporotic
--- NOTE | 2018-07-08 12:44 | RAD REPORT ---
EXAM DESCRIPTION: RAD - Hip Left 2 View - 07/08/2018 12:35 pm CLINICAL HISTORY: Left hip pain FINDINGS: Old fractures involve the left superior and inferior pubic rami. The bones are osteoporotic. No acute fracture or dislocation seen. If the patient continues to have symptoms to suggest an occult fracture then CT scan would be recomme nded.
--- NOTE | 2018-07-08 12:46 | RAD REPORT ---
EXAM DESCRIPTION: RAD - Wrist Left 3 View - 07/08/2018 12:35 pm CLINICAL HISTORY: Left wrist pain FINDINGS: No fracture or dislocation is seen. The bones are osteoporotic If the patient continues to have symptoms to suggest an occult fracture then a followup plain film se keo in 7 days would be recommended
--- NOTE | 2018-07-08 12:57 | ER ---
Nurse's Notes 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 Transition of care: patient was received from another setting of care (long-term care facility), [facility]. Onset of symptoms was July 08, 2018. Risk Assessment: Do you want to hurt yourself or someone else? Patient reports no desire to harm self or others. Initial Sepsis Screen: Does the patient meet any 2 criteria? RR > 20 per min. Altered Mental Status. HR > 90 bpm. Yes Does the patient have a suspected source of infection? Yes: Productive cough/pneumonia. Care prior to arrival: Medication(s) given: Tylenol, 650 mg. 10:39 Method Of Arrival: EMS: [facility] 10:39 Acuity: PARISA 2 iw Historical: - Allergies: 11:02 No Known Allergies; iw - Home Meds: 13:05 bisacodyl 10 mg Rectal supp [Active]; Eliquis 2.5 mg Oral tab [Active]; ibandronate 150 sg mg Oral tab 1 tab [Active]; losartan 50 mg Oral tab [Active]; Miralax 17 gram/dose Oral powd [Active]; oxcarbazepine 300 mg Oral tab [Active]; Remeron 30 mg Oral tab [Active]; senna 8.6 mg oral cap 2 caps once daily [Active]; tramadol 50 mg Oral tab 1 tab every 6 hours [Active]; acetaminophen 325 mg Oral tab 2 tabs every 6 hours [Active]; Vitamin D Oral [Active]; multivitamin oral oral [Active]; Bactrim DS 800-160 mg Oral tab 1 tab every 12 hours [Active]; - PMHx: 11:02 Atrial Fib; Dementia; Hyperlipidemia; Hypertension; Hypothyroidism; Seizures; iw - Immunization history:: Adult Immunizations up to date. - Social history:: Smoking status: Patient/guardian denies using tobacco. - Ebola Screening: : Patient negative for fever greater than or equal to 101.5 degrees Fahrenheit, and additional compatible Ebola Virus Disease symptoms Patient denies exposure to infectious person Patient denies travel to an Ebola-affected area in the 21 days before illness onset No symptoms or risks identified at this time. Screenin:06 Abuse screen: Denies threats or abuse. Denies injuries from another. Nutritional ph screening: No deficits noted. Tuberculosis screening: No symptoms or risk factors identified. Fall Risk Fall in past 12 months (25 points). Secondary diagnosis (15 points) IV access (20 points). Ambulatory Aid- None/Bed Rest/Nurse Assist (0 pts). Gait- Weak (10 pts.). Mental Status- Overestimates/Forgets Limitations (15 pts.). Total Prakash Fall Scale indicates High Risk Score (45 or more points). Fall prevention measures have been instituted. Side Rails Up X 2 Frequent Obs/Assessments Occuring As available patient and family educated on Fall Prevention Program and Strategies. Assessment: 11:05 General: Appears uncomfortable, ill, Behavior is cooperative, anxious. Pain: Complains iw of pain in left hand and left arm. Neuro: Level of Consciousness is awake, Oriented to person, Moves all extremities. Cardiovascular: Patient's skin is warm and dry. Rhythm is sinus tachycardia. Respiratory: Airway is patent Respiratory effort is even, Respiratory pattern is regular, Breath sounds with crackles in right middle lobe, left lower lobe, right lower lobe, left posterior lower lobe, right posterior middle lobe and right posterior lower lobe Parent/caregiver reports the patient having cough that is productive. GI: Abdomen is flat, non-distended. Derm: Skin is fragile, is thin, Bruising that is dark purple, on left eye. Musculoskeletal: Range of motion: intact in all extremities. Vital Signs: 10:47 BP 120 / 62; Pulse 105; Resp 24 S; Temp 100.9(A); Pulse Ox 98% on 3 lpm NC; Weight iw 54.43 kg (R); Pain 0/10; 11:43 Temp 98.2(A); iw 11:48 BP 130 / 62; Pulse 92; Resp 25; Pulse Ox 96% on 3 lpm NC; iw 13:09 BP 132 / 65; Pulse 81; Resp 24; Pulse Ox 100% on 3 lpm NC; ph ED Course: 10:38 Patient arrived in ED. iw 10:39 Harrison Faulkner MD is Attending Physician. teodoro 10:39 Xander Berrios PA is PHCP. jr8 10:47 Triage completed. iw 10:48 Brandee Rodríguez, RN is Primary Nurse. iw 10:50 EKG done, by motion study technician. reviewed by Xander DEAN. at1 11:20 Initial lab(s) drawn, by me, sent to lab. First set of blood cultures drawn by me. em1 Inserted saline lock: 20 gauge in right forearm, using aseptic technique. Blood collected. 11:40 Second set of blood cultures drawn by me. em1 12:35 Chest Single View XRAY In Process Unspecified. EDMS 12:35 XRAY Shoulder LEFT 2 view In Process Unspecified. EDMS 12:35 XRAY Hip LEFT 2 view In Process Unspecified. EDMS 12:35 XRAY Pelvis In Process Unspecified. EDMS 12:35 XRAY Wrist LEFT 3 view In Process Unspecified. EDMS 12:45 Guzman cath inserted, using sterile technique, 16 Fr., by me, balloon inflated, to ph gravity drainage, urine specimen collected. returned shala urine. Patient tolerated poorly. 12:57 Jennifer Gomes MD is Hospitalizing Provider. jr8 13:07 Patient has correct armband on for positive identification. Placed in gown. Bed in low ph position. Call light in reach. Side rails up X2. pipefitter on. Pulse ox on. NIBP on. 13:07 Arm band placed on. ph 15:38 Primary Nurse role handed off by Brandee Rodríguez, RN sg 15:38 Huey Liang, MEAGHAN is Primary Nurse. sg 15:54 No provider procedures requiring assistance completed. Patient admitted, IV remains in ss place. Administered Medications: 11:38 Drug: LevaQUIN 500 mg Volume: 100 ml; Route: IVPB; Infused Over: 60 mins; Site: right iw wrist; 11:43 Not Given (Physician Discretion): Acetaminophen Suppository 650 mg IL once iw 11:44 Drug: NS 0.9% (30 ml/kg) 30 ml/kg Route: IV; Rate: bolus; Site: right wrist; iw Outcome: 12:57 Decision to Hospitalize by Provider. jrElmer 15:54 Admitted to Tele accompanied by tech, via stretcher, room 424, Report called to fourth floor charge nurse 15:54 Condition: stable 15:54 Instructed on the need for admit. 16:13 Patient left the ED. Signatures: Dispatcher [employer] EDMS Huey Liang, RN RN Harrison Calixto MD MD cha Williams, Irene, RN RN iw Martinez, Eric em1 Fernanda House RN RN Xander Berrios PA PA jrJessica Langford, latex foam worker EKG Tat1 Cheli Bedolla RN RN ph Corrections: (The following items were deleted from the chart) 11:21 10:47 BP 120 / 62; Pulse 105bpm; Resp 24bpm; Spontaneous; Pulse Ox 98% 3 lpm Nasal iw Cannula; Temp 100.9F Axillary; Pain 0/10; iw
--- NOTE | 2018-07-08 12:58 | EDPHYS ---
Physician Documentation [facility] Name: Michele Ivey Age: 87 yrs Sex: Female : 1930 Arrival Date: 07/08/2018 Time: 10:38 Bed 2 Private MD: KEVIN Physician Harrison Faulkner HPI: 07/08 11:11 This 87 yrs old Female presents to ER via EMS with complaints of Altered jr8 Mental Status, Fever, Cough. 11:11 The patient presents with confusion, decreased mental status, decreased responsiveness. jr8 Onset: The symptoms/episode began/occurred acutely, today. Possible causes: unknown. Associated signs and symptoms: Pertinent positives: fever. Current symptoms: In the emergency department the patient's symptoms are unchanged from the initial presentation. Patient's baseline: Neuro: alert and fully oriented, Motor: no deficits. It is unknown whether or not the patient has had similar symptoms in the past. The patient has been recently seen by a physician:. Patient with history of dementia. retirement stated that despite the dementia history, is more altered then normal. Fevers per EMS with decrease responsiveness. Had been seen 4 days ago for fall here and had CT head/c-spine completed with no acute findings. Xray of chest at NC with no acute findings . Historical: - Allergies: 11:02 No Known Allergies; iw - Home Meds: 13:05 bisacodyl 10 mg Rectal supp [Active]; Eliquis 2.5 mg Oral tab [Active]; ibandronate 150 sg mg Oral tab 1 tab [Active]; losartan 50 mg Oral tab [Active]; Miralax 17 gram/dose Oral powd [Active]; oxcarbazepine 300 mg Oral tab [Active]; Remeron 30 mg Oral tab [Active]; senna 8.6 mg oral cap 2 caps once daily [Active]; tramadol 50 mg Oral tab 1 tab every 6 hours [Active]; acetaminophen 325 mg Oral tab 2 tabs every 6 hours [Active]; Vitamin D Oral [Active]; multivitamin oral oral [Active]; Bactrim DS 800-160 mg Oral tab 1 tab every 12 hours [Active]; - PMHx: 11:02 Atrial Fib; Dementia; Hyperlipidemia; Hypertension; Hypothyroidism; Seizures; iw - Immunization history:: Adult Immunizations up to date. - Social history:: Smoking status: Patient/guardian denies using tobacco. - Ebola Screening: : Patient negative for fever greater than or equal to 101.5 degrees Fahrenheit, and additional compatible Ebola Virus Disease symptoms Patient denies exposure to infectious person Patient denies travel to an Ebola-affected area in the 21 days before illness onset No symptoms or risks identified at this time. ROS: 11:11 Unable to obtain ROS due to altered mental status. jr8 Exam: 11:11 Eyes: Pupils equal round and reactive to light, extra-ocular motions intact. Lids and jr8 lashes normal. Conjunctiva and sclera are non-icteric and not injected. Cornea within normal limits. Periorbital areas with no swelling, redness, or edema. ENT: Nares patent. No nasal discharge, no septal abnormalities noted. Tympanic membranes are normal and external auditory canals are clear. Oropharynx with no redness, swelling, or masses, exudates, or evidence of obstruction, uvula midline. Mucous membranes moist. Neck: Trachea midline, no thyromegaly or masses palpated, and no cervical lymphadenopathy. Supple, full range of motion without nuchal rigidity, or vertebral point tenderness. No Meningismus. Cardiovascular: Sinus Tachycardia with a normal S1 and S2. No gallops, murmurs, or rubs. Normal PMI, no JVD. No pulse deficits. 11:11 Head/face: Noted is ecchymosis, that is mild, of the left eye. 11:11 Respiratory: mild respiratory distress is noted, Respirations: tachypnea, Breath sounds: rales, that are moderate, are heard diffusely. 11:11 Abdomen/GI: Inspection: abdomen appears normal, Bowel sounds: active, all quadrants, Palpation: abdomen is soft and non-tender, in all quadrants, mass, is not appreciated, rebound tenderness, is not appreciated, voluntary guarding, is not appreciated, involuntary guarding, is not appreciated, no appreciated organomegaly, Indicators: McBurney's point is not tender, Mario's sign is negative, Rovsing's sign is negative, Liver: tenderness, is not appreciated. 11:11 Musculoskeletal/extremity: Extremities: Circulation is intact in all extremities. Sensation intact. Patient has pain with palpation and motion of left hip and left shoulder. No obvious deformity, bruising, or swelling. 11:11 Neuro: Orientation: to person, Mentation: slow to respond, confused, Cranial nerves: CN I not tested, CN II- XII are normal as tested, extraocular movements are intact, Speech is slowed, Tongue strength is normal, Motor: moves all fours, Sensation: no obvious gross deficits, seizure activity, is not displayed by the patient, Abnormal movements: there are no abnormal movements. Vital Signs: 10:47 BP 120 / 62; Pulse 105; Resp 24 S; Temp 100.9(A); Pulse Ox 98% on 3 lpm NC; Weight iw 54.43 kg (R); Pain 0/10; 11:43 Temp 98.2(A); iw 11:48 BP 130 / 62; Pulse 92; Resp 25; Pulse Ox 96% on 3 lpm NC; iw 13:09 BP 132 / 65; Pulse 81; Resp 24; Pulse Ox 100% on 3 lpm NC; ph MDM: 10:39 Patient medically screened. [facility] 12:56 Data reviewed: vital signs, nurses notes, lab test result(s), EKG, radiologic studies, [facility] plain films. Data interpreted: Pulse oximetry: on room air is 96 %. Interpretation: normal. Counseling: I had a detailed discussion with the patient and/or guardian regarding: the historical points, exam findings, and any diagnostic results supporting the discharge/admit diagnosis, lab results, radiology results, the need for further work-up and treatment in the hospital. Physician consultation: Jennifer Gomes MD was called at 12:56, was contacted at 12:56, regarding admission, to the telemetry unit. consult, patient's condition, and will see patient. 07/08 10:55 Order name: Basic Metabolic Panel [facility] 07/08 10:55 Order name: Blood Culture Adult (2) [facility] 07/08 10:55 Order name: CBC with Diff 07/08 10:55 Order name: Ckmb [facility] 07/08 10:55 Order name: CPK [facility] 07/08 10:55 Order name: Lactate; Complete Time: 12:09 [facility] 07/08 10:55 Order name: LFT's; Complete Time: 12:09 [facility] 07/08 10:55 Order name: Lipase; Complete Time: 12:09 [facility] 07/08 10:55 Order name: Procalcitonin; Complete Time: 13:49 [facility] 07/08 10:55 Order name: Protime (+inr); Complete Time: 11:51 [facility] 07/08 10:55 Order name: Ptt, Activated; Complete Time: 11: [facility] 07/08 10:55 Order name: Troponin (emerg Dept Use Only); Complete Time: 12:09 [facility] 07/08 10:55 Order name: Urine Microscopic Only; Complete Time: 13:26 [facility] 07/08 10:56 Order name: Basic Metabolic Panel; Complete Time: 12: [facility] 07/08 10:55 Order name: Cath; Complete Time: 15:54 [facility] 07/08 10:55 Order name: Chest Single View XRAY; Complete Time: 12:44 [facility] 07/08 10:55 Order name: Accucheck; Complete Time: 13:34 [facility] 07/08 10:56 Order name: Blood Culture [facility] 07/08 10:56 Order name: CBC with Automated Diff; Complete Time: 11:50 [facility] 07/08 10:56 Order name: CKMB Creatine Kinase MB; Complete Time: 12: [facility] 07/08 10:56 Order name: Creatine Phosphokinase; Complete Time: 12: [facility] 07/08 10:56 Order name: XRAY Shoulder LEFT 2 view; Complete Time: 12:44 [facility] 07/08 10:56 Order name: XRAY Hip LEFT 2 view; Complete Time: 12:51 [facility] 07/08 10:56 Order name: XRAY Pelvis; Complete Time: 12:44 [facility] 07/08 11:37 Order name: XRAY Wrist LEFT 3 view; Complete Time: 12:51 [facility] 07/08 13:18 Order name: Urine Culture [facility] 07/08 13:30 Order name: Urine Dipstick--Ancillary (enter results); Complete Time: 14:10 07/08 10:55 Order name: Cardiac monitoring; Complete Time: 13:34 [facility] 07/08 10:55 Order name: EKG - Nurse/Tech; Complete Time: 13:34 [facility] 07/08 10:55 Order name: IV Saline Lock - Large Bore; Complete Time: 13:34 [facility] 07/08 10:55 Order name: Labs collected and sent; Complete Time: 13:34 [facility] 07/08 10:55 Order name: O2 Per Protocol; Complete Time: 13:34 [facility] 07/08 10:55 Order name: O2 Sat Monitoring; Complete Time: 13:34 jr8 07/08 10:55 Order name: Urine Dipstick-Ancillary (obtain specimen); Complete Time: 13:34 jr8 Administered Medications: 11:38 Drug: LevaQUIN 500 mg Volume: 100 ml; Route: IVPB; Infused Over: 60 mins; Site: right iw wrist; 11:43 Not Given (Physician Discretion): Acetaminophen Suppository 650 mg SC once iw 11:44 Drug: NS 0.9% (30 ml/kg) 30 ml/kg Route: IV; Rate: bolus; Site: right wrist; iw Disposition: 16:54 Co-signature as Attending Physician, Harrison Faulkner MD I agree with the assessment and teodoro plan of care. 17:06 Critical Care:. jr8 Disposition: 07/08/18 12:57 Hospitalization ordered by Jennifer Gomes for Inpatient Admission. Preliminary diagnosis are Pneumonia due to other specified bacteria, Sepsis, Dehydration. - Bed requested for Telemetry/MedSurg (Inpatient). - Status is Inpatient Admission. ss - Condition is Fair. - Problem is new. - Symptoms have improved. UTI on Admission? No Critical care time excluding procedures: 17:06 Critical care time: Bedside Care: 20 minutes, Consultation: 10 minutes. Total time: 30 jr8 minutes Signatures: Dispatcher [facility] Ana Mancilla RN RN dw Gay, Steven, RN RN sg Anderson, Corey, MD MD cha Williams, Irene, RN RN Fernanda House RN RN ss Roszak, Josh, PA PA jr8 Corrections: (The following items were deleted from the chart) 14:38 12:57 Hospitalization Ordered by Jennifer Gomes MD for Inpatient Admission. Preliminary dw diagnosis is Pneumonia due to other specified bacteria; Sepsis; Dehydration. Bed requested for Telemetry/MedSurg (Inpatient). Status is Inpatient Admission. Condition is Fair. Problem is new. Symptoms have improved. UTI on Admission? No. jr8 16:13 14:38 07/08/2018 12:57 Hospitalization Ordered by Jennifer Gomes MD for Inpatient ss Admission. Preliminary diagnosis is Pneumonia due to other specified bacteria; Sepsis; Dehydration. Bed requested for Telemetry/MedSurg (Inpatient). Status is Inpatient Admission. Condition is Fair. Problem is new. Symptoms have improved. UTI on Admission? No. dw
[2018-07-08 13:17] LABS: Calcium Oxalate Crystals- Ur FEW (NONE SEEN); Urine Amorphous Sediment 3+ /HPF (NONE SEEN); Urine Bacteria <20 /HPF (<20); Urine Culture Reflex Order REFLEXED; Urine Mucus HEAVY /HPF (NONE SEEN); Urine RBC 20-50 /HPF (NONE SEEN)
[2018-07-08 14:02] LABS: Urine Blood 2+ (NEG); Urine Glucose NEGATIVE (NEG); Urine Protein 2+ (NEG); Urine Specific Gravity 1.025 (1.005-1.030); Urine pH 5.5 (5.0-7.0)
[2018-07-08] MEDS: Levofloxacin 750mg IV 750 MG/150 ML BAG IV SCH (17:03)
[2018-07-08] MEDS ORDERED: ONDANSETRON 4 MG/2 ML VIAL IV PRN (17:03)
[2018-07-08] MEDS ORDERED: ALBUTEROL 2.5 MG/3 ML NEB SOL NEB PRN (17:03)
[2018-07-08] MEDS ORDERED: ACETAMINOPHEN 325 MG TABLET PO PRN (17:03)
[2018-07-08] MEDS: ENOXAPARIN 30 MG/0.3 ML SQ SCH (18:46)
--- NOTE | 2018-07-09 02:10 | HP ---
Date of Admission: 07/08/2018 Chief Complaint: Altered mental status. Code Status: Full. History Of Present Illness: The patient is an 87-year-old female from the nursing facility with past medical history of atrial fibrillation, dementia, hyperlipidemia, hypertension, hypothyroidism, seiz ure disorders, who comes in from the [facility] due to confusion, decreased mental status, and decr eased responsiveness. It should be noted the patient is altered, unable to participate in history ta jd. There is no family at the bedside. History is taken from previous records, ER, and staff. e patient did have fever, had a fall 4 days ago, and head CT-spine was negative and chest x-ray at e [facility] was negative; however, repeat chest x-ray here showed pneumonia. The patient's sympto ms were constant, moderate, progressively worsening. She was started on IV antibiotics. X-ray for o ther fractures were obtained and were negative. Past Medical History: Atrial fibrillation, dementia, hyperlipidemia, hypertension, hypothyroidism, s eizures. Past Surgical History: Unable to be obtained. Allergies: NO KNOWN DRUG ALLERGIES. Medications: List reviewed. Social History: No tobacco use, alcohol use, or illicit drug use. The patient lives in [facility]. Needs assistance for her activities of daily living. Review of Systems: Unable to be obtained due to patient's medical condition. Physical Examination: Vital Signs: Temperature 100.9, heart rate 105, blood pressure 120/62, respirations 24, O2 98% on 3 L via nasal cannula. General: Asleep but arousable, appears to be in pain and moderate distress, elderly female, frail, i ll-appearing. HEENT: Normocephalic, atraumatic. PERRLA. EOMI. Dry mucous membranes. Oropharynx is clear. Conj unctiva anicteric. Neck: Supple. No JVD. Trachea midline. CV: S1, S2. Peripheral pulses present. Respiratory: Diminished breath sounds. Some rhonchi present. No wheezing or stridor. No use of ac cessory muscles. Gastrointestinal: Abdomen is soft, nontender, nondistended. Positive bowel sounds. No rigidity. Extremities: No clubbing, cyanosis, or edema. No calf tenderness. Neuro: Cranial nerves 2 through 12 intact grossly. Moves all 4 extremities. No focal neurological deficits. Speech is normal. Skin: The patient has ecchymosis and raccoon eyes on the left from previous fall. Laboratory Data: Sodium 141, potassium 3.7, chloride 106, CO2 25, BUN 40, creatinine 0.82, glucose 1 40, lactate 1, calcium 8.7. Procalcitonin 0.35. INR 1.4. WBC 14.3, H and H 11.1 and 33, platelets 248, neutrophils 84%. UA; negative nitrite, negative leukocyte esterase, 20-50 rbc, less than 5 wbc. Imaging Studies: Wrist x-ray shows no fracture or dislocation. Shoulder x-ray of the left shows no fracture or dislocation. Pelvis x-ray shows old left hemipelvis fractures noted, no acute fractures. Hip x-ray personally reviewed shows no acute fracture, old fracture involving the left superior inf erior pubic rami. Chest x-ray shows underinflated lungs with linear opacities in the medial left regi g base, suspicious for aspiration or developing pneumonia. Assessment And Plan: 1.An 87-year-old female with sepsis. The patient has fever, tachypneic, tachycardic. Procalcitonin is borderline. White count is elevated to 14,000 with left shift. The patient was given 3 L IV flu id bolus and started on IV antibiotics. The patient is from nursing facility, has risk factors. We will continue with IV antibiotics, follow up on blood cultures, and obtain sputum cultures. 2.Left lower lobe pneumonia. We will continue Levaquin. Follow up on sputum cultures. 3.Atrial fibrillation, chronic. 4.Continue rate control. 5.Alzheimer's dementia, early onset, without behavioral disturbance. 6.Mixed hyperlipidemia. We will continue statin. 7.Essential hypertension. We will resume home blood pressure medications as appropriate. 8.Hypothyroidism. Continue Synthroid. 9.History of seizure disorder. Plan: Admit the patient to Med-Surg, place as inpatient. Length Of Stay: Greater than 2 midnights. CHEN Voice ID: [id number]
[2018-07-09 04:56] LABS: Absolute Lymphocytes (CBC) 1.5 K/uL (0.7-4.9); Absolute Monocytes 1.1 K/uL (0.1-1.3); Basophils % 0.7 % (0-1.3); Eosinophils % 0.9 % (0-4.4); Hematocrit 31.4 % (36.0-45.0); Lymphocytes % 12.8 % (15.3-44.8); MPV 9.6 fL (7.6-11.3); Monocytes % 9.2 % (3.3-12.3); RBC Red Blood Cell Count 3.14 M/uL (3.86-4.86)
[2018-07-09 05:27] LABS: BUN Blood Urea Nitrogen 28 mg/dL (7-18); Bicarbonate 27 mmol/L (21-32); Glucose Level 99 mg/dL (74-106); Magnesium 2.7 mg/dL (1.8-2.4); Phosphorus 2.6 mg/dL (2.5-4.9); Potassium 3.5 mmol/L (3.5-5.1); Sodium Level 143 mmol/L (136-145)
--- NOTE | 2018-07-09 07:47 | EKG ---
Test Date: 2018-07-08 Test Time: 10:46:59 Supervisor Electronic Coils: STEFFI MEASUREMENT RESULTS: Intervals: Rate: 105 NM: 138 QRSD: 86 QT: 334 QTc: 441 [place]: P: 38 NM: 138 QRS: 26 T: 0 INTERPRETIVE STATEMENTS: Sinus tachycardia Nonspecific T wave abnormality Abnormal ECG Compared to ECG 09/12/2017 09:30:03 T-wave abnormality now present Ventricular premature complex(es) no longer present Atrial-paced complex(es) or rhythm no longer present Myocardial infarct finding no longer present Electronically Signed On 07-09-18 07:47:45 CDT by Aldo Munoz
[2018-07-09] MEDS: ENOXAPARIN 30 MG/0.3 ML SQ SCH (09:34)
[2018-07-09] MEDS ORDERED: BISACODYL 10 MG RECTAL SUPP PR SCH (12:00)
[2018-07-09] MEDS: Levofloxacin 750mg IV 750 MG/150 ML BAG IV SCH (12:20)
[2018-07-09] MEDS: TRAMADOL HCL 50 MG TAB PO PRN (13:52)
--- NOTE | 2018-07-09 20:55 | PN ---
Date of Progress Note: 07/09/2018 Subjective: The patient is seen and examined. Chart reviewed and case discussed with RN. The patie nt is much more awake and alert today, complaining of some pain in her wrist and left side in general from her previous fall. Medications: List reviewed. Physical Examination: Vital Signs: Temperature 97.2, heart rate 64, blood pressure 138/62, respirations 20, O2 97% on 2 L via nasal cannula. The patient's max temperature was 100.9 yesterday morning. General: Asleep but arousable. Oriented to self and place, in some mild distress due to pain. Sergio venegas, ill-appearing elderly female. CV: S1 and S2. Regular rate and rhythm. Peripheral pulses present. Respiratory: Diminished breath sounds at the bases, left worse than right. Some rhonchi heard. No wheezing or stridor. Gastrointestinal: Abdomen is soft, nontender, nondistended. Positive bowel sounds. No guarding or rigidity. Extremities: No clubbing, cyanosis, or edema. Skin: The patient has multiple areas of ecchymoses on the left side from her recent fall. Neurologic: Nonfocal. The patient has generalized weakness; however, able to move all 4 extremities . Laboratory Data: Sodium 143, potassium 3.5, chloride 109, CO2 27, BUN 28, creatinine 0.58, glucose 9 9, calcium 8.4, phosphorus 2.6, magnesium 2.7. WBC 11.8, H and H 10.5 and 31.4, platelets 239, neutr ophils 76%. Blood cultures, no growth to date. Sputum cultures pending. Urine cultures, no growth to date. Assessment And Plan: An 87-year-old female with: 1.Sepsis. The patient has improved. White count is trending down. The patient's blood pressure is stable. No longer tachycardic or tachypneic. The patient did have fever yesterday of 100.9. We wi ll continue to monitor. Follow up on culture results, no growth to date. Continue IV antibiotics. 2.Left lower lobe pneumonia, possible aspiration. We will have Speech Therapy evaluate the patient and follow up on sputum cultures. Continue antibiotics. 3.Chronic atrial fibrillation. We will continue with rate control. The patient is on Eliquis. 4.Alzheimer's dementia, early onset without behavioral disturbance, stable. Continue Namenda. 5.Mixed hyperlipidemia, statin. 6.Essential hypertension, stable. Blood pressure has improved. We will resume home medications as appropriate. 7.Hypothyroidism, Synthroid. 8.History of seizure disorder. Seizure precaution. 9.Deep vein thrombosis prophylaxis. The patient is on Eliquis. Plan: PT, OT eval, Speech Therapy evaluation. We will await culture results. The patient is improv ing significantly, likely discharge back to nursing facility in next 24-48 hours. /ABDIRIZAK Voice ID: [id number] Report ID: [id number]
[2018-07-09] MEDS: MIRTAZAPINE 15 MG TAB PO SCH (21:25)
[2018-07-09] MEDS: MEMANTINE HCL 10 MG TABLET PO SCH (21:25)
[2018-07-09] MEDS: TRAMADOL HCL 50 MG TAB PO SCH (21:25)
[2018-07-09] MEDS: OXcarbazepine 150 MG TAB PO SCH (21:27)
[2018-07-09] MEDS ORDERED: guaiFENesin 100 MG/5 ML UCUP PO PRN (22:47)
[2018-07-10 05:13] LABS: Absolute Lymphocytes (CBC) 1.7 K/uL (0.7-4.9); Absolute Monocytes 1.2 K/uL (0.1-1.3); Absolute Neutrophil 6.9 K/uL (1.8-8.0); Basophils % 1.1 % (0-1.3); Eosinophils % 4.3 % (0-4.4); Lymphocytes % 16.8 % (15.3-44.8); MPV 9.1 fL (7.6-11.3); Monocytes % 11.3 % (3.3-12.3); RBC Red Blood Cell Count 2.99 M/uL (3.86-4.86)
[2018-07-10 05:39] LABS: BUN Blood Urea Nitrogen 26 mg/dL (7-18); Bicarbonate 29 mmol/L (21-32); Glucose Level 99 mg/dL (74-106); Magnesium 2.7 mg/dL (1.8-2.4); Potassium 3.6 mmol/L (3.5-5.1); Sodium Level 143 mmol/L (136-145)
[2018-07-10] MEDS ORDERED: LOSARTAN POTASSIUM 50 MG TABLET PO SCH (09:00)
[2018-07-10] MEDS: POLYETHYL GLY 3350 17 GM/DOSE PO SCH (09:00)
[2018-07-10] MEDS: OXcarbazepine 150 MG TAB PO SCH ×2 (09:26→21:50)
[2018-07-10] MEDS: DOCUSATE NA/SENNA CONC 1 TAB PO SCH (09:27)
[2018-07-10] MEDS: APIXABAN 2.5 MG TABLET PO SCH ×3 (09:28→21:49)
[2018-07-10] MEDS: TRAMADOL HCL 50 MG TAB PO SCH ×2 (09:28→21:50)
[2018-07-10] MEDS: MEMANTINE HCL 10 MG TABLET PO SCH ×2 (09:28→21:49)
[2018-07-10] MEDS: Levofloxacin 750mg IV 750 MG/150 ML BAG IV SCH (13:19)
[2018-07-10] MEDS: TRAMADOL HCL 50 MG TAB PO PRN (15:01)
--- NOTE | 2018-07-10 20:09 | PN ---
Subjective: The patient is seen and examined. Chart reviewed and case discussed with RN. The patie nt is much more awake and alert today. Feels better, tolerating her diet. Medications: List reviewed. Physical Examination: Vital Signs: Temperature 98.5, heart rate 86, blood pressure 83/54, respirations 18, O2 99% on room air. General: Awake, alert, oriented x2. Elderly female, ill-appearing, frail. CV: S1, S2. Regular rate and rhythm. Peripheral pulses present. Respiratory: Diminished breath sounds. No wheezing or stridor. Gastrointestinal: Abdomen is soft, nontender, nondistended. Positive bowel sounds. Extremities: No clubbing, cyanosis, or edema. Neurologic: Nonfocal. Laboratory Data: Sodium 143, potassium 3.6, chloride 107, CO2 29, BUN 26, creatinine 0.56, glucose 9 9, calcium 8.5, phosphorus 3, magnesium 2.7. WBC 10.3, H and H 10.2, 30, platelets 245, neutrophils 66%. Blood cultures, no growth to date. Sputum culture is growing normal upper miriam. Assessment And Plan: An 87-year-old female with: 1.Sepsis. The patient is improving. White count is normalized, however, blood pressure is still lo w and the patient is hypotensive with systolic of 80s. We will give 0.5 L bolus and monitor blood pr essure. Cultures show no growth to date. The patient has been afebrile since yesterday morning. 2.Left lower lobe pneumonia, possible aspiration. Speech Therapy to evaluate the patient. Sputum c ultures showing normal miriam. Continue antibiotics. We will repeat chest x-rays for improvement. 3.Chronic atrial fibrillation. Continue rate control. Continue Eliquis. 4.Alzheimer's dementia, early onset without behavioral disturbance, stable. Continue Namenda. 5.Mixed hyperlipidemia. Continue statin. 6.History of essential hypertension, currently hypotensive. We will hold blood pressure medications for now. 7.Hypothyroidism. Continue Synthroid. 8.History of seizure disorder, stable. Continue seizure precautions. 9.Deep vein thrombosis prophylaxis. The patient is already on Eliquis. Plan: Monitor blood pressure, 500 mL bolus. The patient will likely to be close to being discharged in the next 24-48 hours depending on clinical response and improvement in sepsis. /MODL Voice ID: [id number] Report ID: [id number]
[2018-07-10] MEDS: MIRTAZAPINE 15 MG TAB PO SCH (21:49)
[2018-07-11 07:08] LABS: Absolute Lymphocytes (CBC) 1.4 K/uL (0.7-4.9); Absolute Monocytes 0.9 K/uL (0.1-1.3); Absolute Neutrophil 5.7 K/uL (1.8-8.0); Basophils % 0.5 % (0-1.3); Eosinophils % 5.9 % (0-4.4); Hematocrit 31.1 % (36.0-45.0); Lymphocytes % 16.4 % (15.3-44.8); MPV 8.5 fL (7.6-11.3); RBC Red Blood Cell Count 3.13 M/uL (3.86-4.86)
--- NOTE | 2018-07-11 07:08 | RAD REPORT ---
EXAM DESCRIPTION: RAD - Chest Single View - 07/10/2018 9:10 pm CLINICAL HISTORY: Pneumonia COMPARISON: July 08 TECHNIQUE: AP portable chest image was obtained 2035 hours . FINDINGS: Lung volumes remain quite low. Chronic interstitial lung disease is present. Focally more prominent lung parenchymal opacification is present in the left base. This is most likely pneumonia w ith no improvement from July 08. 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 Heart and vasculature are normal. No measurable pleural effusion and no p neumothorax. No acute bony abnormality seen. No acute aortic finding. Prominent colonic interposition between the liver and right hemidiaphragm as a normal variant. IMPRESSION: Left base pneumonia findings not clearly different from July 08.
[2018-07-11 07:32] LABS: BUN Blood Urea Nitrogen 24 mg/dL (7-18); Bicarbonate 29 mmol/L (21-32); Glucose Level 107 mg/dL (74-106); Magnesium 2.6 mg/dL (1.8-2.4); Phosphorus 3.2 mg/dL (2.5-4.9); Potassium 3.5 mmol/L (3.5-5.1); Sodium Level 143 mmol/L (136-145)
[2018-07-11] MEDS: APIXABAN 2.5 MG TABLET PO SCH (09:59)
[2018-07-11] MEDS: DOCUSATE NA/SENNA CONC 1 TAB PO SCH (09:59)
[2018-07-11] MEDS: MEMANTINE HCL 10 MG TABLET PO SCH (09:59)
[2018-07-11] MEDS: TRAMADOL HCL 50 MG TAB PO SCH (10:00)
[2018-07-11] MEDS: OXcarbazepine 150 MG TAB PO SCH (10:01)
[2018-07-11] MEDS: POLYETHYL GLY 3350 17 GM/DOSE PO SCH (10:02)
[2018-07-11] MEDS: Levofloxacin 750mg IV 750 MG/150 ML BAG IV SCH (12:00)
[2018-07-11] MEDS: TRAMADOL HCL 50 MG TAB PO PRN (15:53)
--- NOTE | 2018-07-12 01:22 | DS ---
Date of Discharge: 07/11/2018 Discharge Diagnoses: 1.Sepsis secondary to pneumonia. 2.Left lower lobe pneumonia. No signs of aspiration. 3.Chronic atrial fibrillation, on Eliquis. 4.Alzheimer's dementia early onset without behavioral disturbance. 5.Mixed hyperlipidemia, on statin. 6.Essential hypertension, stable. 7.Hypothyroidism, on Synthroid. 8.History of seizure disorder. Hospital Course: The patient is an 87-year-old female from the nursing facility, came in with altere d mental status. She was found to have pneumonia on chest x-ray, septic. She was hypotensive. The patient recently had a fall and her imaging studies were negative for any acute fractures. The teresa acharya was started on IV antibiotics. Her white count improved. She was given IV fluid boluses. The reed dumont's mental status improved and she was back to her baseline. The patient's atrial fibrillation r emained stable. She is on chronic anticoagulation. Her rate was controlled. Procalcitonin was bord jo ann. Her lactate was normal. The patient was then able to tolerate her diet. Her culture showed no growth. Sputum cultures also did not show any growth. She was then cleared for discharge. Her repeat chest x-ray showed residual pneumonia; however, clinically she was significantly better, still having some cough, but afebrile, no signs of sepsis, not tachycardic or tachypneic, not requiring an y supplemental oxygenation. The patient was also evaluated by Speech Therapy to rule out aspiration. No overt aspiration was seen. She was placed on aspiration precautions. The patient was then montemayor sferred back to nursing facility in a stable condition. Activity: Fall precautions. Medications: As per medication reconciliation list. Finish up course of Levaquin for a total of 7 d ays. Followup: Follow up with primary care physician in 2-3 days. Return to ER for worsening condition. Physical Examination: General: Awake, alert, oriented x3. No acute distress. CV: S1, S2. Irregularly irregular. Respiratory: Moving air well bilaterally. Some diminished breath sounds at left base. Gastrointestinal: Abdomen is soft, nontender, nondistended. Positive bowel sounds. Extremities: No clubbing, cyanosis, edema. Neuro: Generalized weakness. No focal deficits. Total time spent discharging the patient was 38 minutes. SA/MODL Voice ID: [id number] Report ID: [id number]
== END 2018-07-11 19:15 | DRG 871 ==
LOC: ER 10:32 → ERHOLD 13:41 → 4TH 15:55
PROVIDERS: ADMIT Family Medicine; ATTEND Family Medicine
DX: A41.9 Sepsis, unspecified organism (principal); J18.1 Lobar pneumonia, unspecified organism; I48.2 Chronic atrial fibrillation; Z79.01 Long term (current) use of anticoagulants; G30.0 Alzheimer's disease with early onset; F02.80 Dementia in other diseases classified elsewhere, unspecified severity, without behavioral disturbance, psychotic disturbance, mood disturbance, and anxiety; E78.2 Mixed hyperlipidemia; I10 Essential (primary) hypertension; E03.9 Hypothyroidism, unspecified; G40.909 Epilepsy, unspecified, not intractable, without status epilepticus; I95.9 Hypotension, unspecified; Z91.81 History of falling
CPT/HCPCS: 36415; 51702; 70450; 71045; 72125; 72170; 80048; 80076; 81003; 81015; 82550; 82553; 82962; 83605; 83690; 83735; 84100; 84145; 84484; 85025; 85610; 85730; 87040; 87070; 87086; 87088; 87205; 92526; 92610; 93005; 94760; 96374; 96375; 97162; 97166; 97530; 99285; J1650; J7030